=== PATIENT | male | born 1940 | race Caucasian/White ===

== ENCOUNTER 2018-05-14 07:12 | Inpatient (IN) | payer MEDICARE, OTHER | END 2018-05-16 14:30 | disposition home or self-care (01) | LOC: MED 3N 05-15 12:10 → ER 07:12 → PCU 3S 05-15 17:30 → ED HOLD 10:01 → PCU 3S 11:15 → ICU 2S 18:31 ==

== ENCOUNTER 2021-05-08 17:24 | Inpatient (IN) | payer OTHER, MEDICARE ==
[~2021-05-08] VITALS: Ht 170.2 cm; Wt 72.0 kg
[~2021-05-08 17:24] MED LIST: AMIO200T61 PO; ASPI-1265 PO; CLOP75TA34 PO; COR3.125T PO; FURO-150 PO; LISI10TA27 PO; SPIR25TA PO
[2021-05-08 21:39] LABS: BASOPHILS % (AUTO) 0.6 % (0-1); EOSINOPHILS # (AUTO) 0.1 X10'3 (0-0.9); EOSINOPHILS % (AUTO) 2.9 % (0-6); HEMATOCRIT 51.2 % (42.0-52.0); LYMPHOCYTES # (AUTO) 0.9 X10'3 (1.1-4.8); LYMPHOCYTES % (AUTO) 18.5 % (21-51); MEAN CORPUSCULAR HEMOGLOBIN 31.2 PG (27.0-31.0); MEAN CORPUSCULAR HGB CONC 33.3 g/dL (33.0-36.5); MEAN CORPUSCULAR VOLUME 93.7 FL (78-98); MEAN PLATELET VOLUME 8.2 FL (7.4-10.4); MONOCYTES # (AUTO) 0.5 X10'3 (0-0.9); MONOCYTES % (AUTO) 10.7 % (2-12); NEUTROPHILS # (AUTO) 3.1 X10'3 (1.8-7.7); NEUTROPHILS % (AUTO) 67.3 % (42-75); PLATELET COUNT 176 X10'3 (140-440); RED BLOOD COUNT 5.46 X10'6 (4.70-6.10); RED CELL DISTRIBUTION WIDTH 17.1 % (11.5-14.5); WHITE BLOOD COUNT 4.6 X10'3 (4.5-11.0)
[2021-05-08 21:46] LABS: APTT 32 SECONDS (22-32)
[2021-05-08 21:49] LABS: ALANINE AMINOTRANSFERASE 16 U/L (12-78); ALBUMIN 3.1 G/DL (3.4-5.0); ALBUMIN/GLOBULIN RATIO 0.7 (1.1-1.5); ALKALINE PHOSPHATASE 119 IU/L (46-116); ANION GAP 7 (8-16); ASPARTATE AMINO TRANSFERASE 32 U/L (10-37); BILIRUBIN,TOTAL 2.1 MG/DL (0.1-1.0); BLOOD UREA NITROGEN 20 MG/DL (7-18); BUN/CREATININE RATIO 15.6 (5.4-32.0); CHLORIDE 103 MMOL/L (99-107); CREATININE 1.28 MG/DL (0.60-1.10); GLUCOSE 85 MG/DL (70-104); POTASSIUM 3.5 MMOL/L (3.5-5.1); SODIUM 137 MMOL/L (135-145); TOTAL CARBON DIOXIDE 26.8 MMOL/L (24-32); TOTAL PROTEIN 7.7 G/DL (6.4-8.2); eGFR 54 ML/MIN
[2021-05-08] MEDS ORDERED: furosemide 10 MG/1 ML 10ml inj IV ONE (22:30)
[2021-05-08] MEDS ORDERED: mag hydrox/Alum hydrox/simeth 30ml oral suspension PO PRN (23:35)
[2021-05-08] MEDS ORDERED: magnesium 4gm in 100ml NS 100 ML IV PRN (23:35)
[2021-05-08] MEDS ORDERED: ondansetron/PF 4mg/2ml inj IV PRN (23:35)
[2021-05-08] MEDS ORDERED: acetaminophen 325mg tablet PO PRN (23:35)
[2021-05-08] MEDS ORDERED: magnesium hydroxide 30ml (MOM) UD suspension PO PRN (23:35)
[2021-05-08] MEDS ORDERED: magnesium Cl slow-release 64mg tablet PO PRN (23:35)
[2021-05-08] MEDS ORDERED: magnesium 2GM in 50ml NS 50 ML IV PRN (23:35)
[2021-05-08] MEDS ORDERED: potassium CL 10mEq/100ml bag 100 ML IV PRN (23:35)
[2021-05-08] MEDS ORDERED: potassium Cl 20 mEq SR tablet PO PRN (23:35)
[2021-05-08] MEDS ORDERED: AMIO100T PO (23:42)
[2021-05-08] MEDS ORDERED: CLOP75TA33 PO (23:42)
[2021-05-08] MEDS ORDERED: SPIR25TA5 PO (23:42)
--- NOTE | 2021-05-09 03:17 | NUR ---
Received report on patient from MERCEDEZ Frias. Pt coming up from ED. ALVAROS
[2021-05-09 03:32] LABS: POTASSIUM 3.5 MMOL/L (3.5-5.1)
--- NOTE | 2021-05-09 03:40 | NUR ---
Pt came up from ED in a wheelchair. VSS
[2021-05-09 04:24] VITALS: BP 147/86
[2021-05-09 07:36] LABS: BASOPHILS % (AUTO) 0.4 % (0-1); EOSINOPHILS # (AUTO) 0.1 X10'3 (0-0.9); EOSINOPHILS % (AUTO) 1.5 % (0-6); HEMATOCRIT 46.6 % (42.0-52.0); HEMOGLOBIN 15.8 g/dl (14.0-17.9); LYMPHOCYTES # (AUTO) 0.7 X10'3 (1.1-4.8); LYMPHOCYTES % (AUTO) 14.9 % (21-51); MEAN CORPUSCULAR HEMOGLOBIN 31.3 PG (27.0-31.0); MEAN CORPUSCULAR HGB CONC 33.9 g/dL (33.0-36.5); MEAN CORPUSCULAR VOLUME 92.4 FL (78-98); MEAN PLATELET VOLUME 7.9 FL (7.4-10.4); MONOCYTES # (AUTO) 0.4 X10'3 (0-0.9); MONOCYTES % (AUTO) 9.5 % (2-12); NEUTROPHILS # (AUTO) 3.5 X10'3 (1.8-7.7); NEUTROPHILS % (AUTO) 73.7 % (42-75); PLATELET COUNT 173 X10'3 (140-440); RED BLOOD COUNT 5.04 X10'6 (4.70-6.10); RED CELL DISTRIBUTION WIDTH 16.4 % (11.5-14.5); WHITE BLOOD COUNT 4.7 X10'3 (4.5-11.0)
[2021-05-09 07:49] LABS: ALANINE AMINOTRANSFERASE 14 U/L (12-78); ALBUMIN 2.7 G/DL (3.4-5.0); ALBUMIN/GLOBULIN RATIO 0.6 (1.1-1.5); ALKALINE PHOSPHATASE 95 IU/L (46-116); ANION GAP 6 (8-16); ASPARTATE AMINO TRANSFERASE 27 U/L (10-37); BILIRUBIN,TOTAL 2.2 MG/DL (0.1-1.0); BLOOD UREA NITROGEN 21 MG/DL (7-18); BUN/CREATININE RATIO 16.8 (5.4-32.0); CALCIUM 8.4 MG/DL (8.5-10.1); CHLORIDE 104 MMOL/L (99-107); CREATININE 1.25 MG/DL (0.60-1.10); GLUCOSE 98 MG/DL (70-104); POTASSIUM 3.4 MMOL/L (3.5-5.1); SODIUM 137 MMOL/L (135-145); TOTAL CARBON DIOXIDE 27.1 MMOL/L (24-32); TOTAL PROTEIN 6.9 G/DL (6.4-8.2); eGFR 55 ML/MIN
[2021-05-09] MEDS: K and/or MAG REPLACEMENT MC SCH ×2 (08:00→20:00)
[2021-05-09] MEDS ORDERED: spironolactone 25 MG tablet PO SCH ×2 (08:00→11:41)
[2021-05-09 08:31] VITALS: BP 151/88
[2021-05-09] MEDS: furosemide 10 MG/1 ML 10ml inj IV SCH ×2 (09:01→20:55)
[2021-05-09] MEDS: amiodarone 100mg tablet PO SCH (09:28)
[2021-05-09] MEDS: potassium Cl 20 mEq SR tablet PO PRN ×3 (09:28→17:50)
[2021-05-09] MEDS: carvedilol 6.25mg tablet PO SCH ×2 (09:29→20:53)
[2021-05-09] MEDS: clopidogrel 75mg tablet PO SCH (09:29)
[2021-05-09] MEDS: docusate sod 100mg capsule PO SCH ×2 (09:29→20:53)
--- NOTE | 2021-05-09 09:42 | NUR ---
PAGER ID: [phone] MESSAGE: Morro Berger [id number] Please clarify if you want both heparin and Plavix given. PT elevated plts only 176. Heparin held until clarification. Do you want k replaced to 4 for cardiac pt? Thank you Sue [id number]
--- NOTE | 2021-05-09 10:48 | NUR ---
Spoke with hospitalist. He would like both plavix and heparin given. Aware of coag studies.
[2021-05-09] MEDS: heparin, porcine 5000 units/ml vial SQ SCH ×2 (11:38→20:53)
--- NOTE | 2021-05-09 11:44 | NUR ---
A labeled 8am scheduled oral diuretic could not be provided by pharmacy in timely manner. Noted med not available.
[2021-05-09 12:09] VITALS: BP 125/77
[2021-05-09] MEDS ORDERED: ondansetron 4mg rapidly disintigrating tab PO PRN (12:50)
[2021-05-09 15:46] VITALS: BP 90/49
[2021-05-09 16:45] VITALS: BP 125/75
--- NOTE | 2021-05-09 17:46 | NUR ---
PAGER ID: [phone] MESSAGE: Morro Berger [id number] Pt. apical HR 52 at rest. Asymptotic. Irregular HR with s3 gallop at times. Do you want EKG? Sue [id number]
[2021-05-09 18:00] VITALS: BP 106/77
--- NOTE | 2021-05-09 18:18 | NUR ---
Gave report to Latosha NEWSOME.
--- NOTE | 2021-05-09 20:00 | NUR ---
PT AMBULATED WHOLE UNIT WITH SBA AND GAIT BELT.O2 SATS AT REST BETWEEN 93-100 ON RA BUT DESATS TO 82 WITH ACTIVITY.PT C/O SOB .
[2021-05-10] VITALS: BP 110/69
[2021-05-10 06:12] LABS: BASOPHILS % (AUTO) 0.8 % (0-1); EOSINOPHILS # (AUTO) 0.2 X10'3 (0-0.9); EOSINOPHILS % (AUTO) 3.7 % (0-6); HEMATOCRIT 50.1 % (42.0-52.0); HEMOGLOBIN 16.7 g/dl (14.0-17.9); LYMPHOCYTES # (AUTO) 0.9 X10'3 (1.1-4.8); LYMPHOCYTES % (AUTO) 19.7 % (21-51); MEAN CORPUSCULAR HEMOGLOBIN 31.4 PG (27.0-31.0); MEAN CORPUSCULAR HGB CONC 33.2 g/dL (33.0-36.5); MEAN CORPUSCULAR VOLUME 94.4 FL (78-98); MEAN PLATELET VOLUME 8.2 FL (7.4-10.4); MONOCYTES # (AUTO) 0.5 X10'3 (0-0.9); MONOCYTES % (AUTO) 9.6 % (2-12); NEUTROPHILS # (AUTO) 3.1 X10'3 (1.8-7.7); NEUTROPHILS % (AUTO) 66.2 % (42-75); PLATELET COUNT 178 X10'3 (140-440); RED BLOOD COUNT 5.31 X10'6 (4.70-6.10); RED CELL DISTRIBUTION WIDTH 16.8 % (11.5-14.5); WHITE BLOOD COUNT 4.7 X10'3 (4.5-11.0)
--- NOTE | 2021-05-10 06:41 | NUR ---
Report given to kassy NEWSOME
[2021-05-10 06:43] LABS: ALANINE AMINOTRANSFERASE 14 U/L (12-78); ALBUMIN 2.9 G/DL (3.4-5.0); ALBUMIN/GLOBULIN RATIO 0.6 (1.1-1.5); ALKALINE PHOSPHATASE 99 IU/L (46-116); ANION GAP 3 (8-16); ASPARTATE AMINO TRANSFERASE 29 U/L (10-37); BILIRUBIN,TOTAL 2.3 MG/DL (0.1-1.0); BLOOD UREA NITROGEN 23 MG/DL (7-18); BUN/CREATININE RATIO 15.3 (5.4-32.0); CALCIUM 8.7 MG/DL (8.5-10.1); CHLORIDE 101 MMOL/L (99-107); GLUCOSE 86 MG/DL (70-104); MAGNESIUM 1.9 MG/DL (1.5-2.4); POTASSIUM 4.3 MMOL/L (3.5-5.1); SODIUM 136 MMOL/L (135-145); TOTAL CARBON DIOXIDE 31.7 MMOL/L (24-32); TOTAL PROTEIN 7.5 G/DL (6.4-8.2); eGFR 45 ML/MIN
[2021-05-10] MEDS: heparin, porcine 5000 units/ml vial SQ SCH (07:05)
[2021-05-10] MEDS: amiodarone 100mg tablet PO SCH (07:05)
[2021-05-10] MEDS: docusate sod 100mg capsule PO SCH (07:05)
[2021-05-10] MEDS: K and/or MAG REPLACEMENT MC SCH (07:06)
[2021-05-10] MEDS: clopidogrel 75mg tablet PO SCH (07:07)
[2021-05-10] MEDS: carvedilol 6.25mg tablet PO SCH (07:08)
[2021-05-10 07:14] VITALS: BP 124/81
[2021-05-10 08:00] VITALS: BP 118/74
[2021-05-10 09:09] VITALS: BP 123/60
[2021-05-10] MEDS ORDERED: FURO40TA4 PO (10:04)
--- NOTE | 2021-05-10 10:17 | NUR ---
Spoke with hospitalist who is rounding on floor. ok to give lasix with 59 hr.
[2021-05-10] MEDS: furosemide 10 MG/1 ML 10ml inj IV SCH (10:21)
--- NOTE | 2021-05-10 10:40 | NUR ---
Called Hetal 2x. Left voicemail with contact info. Called daughter. Phone turned off. Message in belarusian.
--- NOTE | 2021-05-10 12:05 | NUR ---
DISCHARGE NOTE: Reviewed discharge medications and paperwork with pt. and pt. ex- Hetal. Extensive education provided on potassium rich heart-healthy diet, way to keep med compliance and organize medications, benefits and possible ASE of new med Lasix, and exercise. Discuss f/u. Good verbal feedback from both people. Pt. knows to p/u meds. Talked about not taking medication which the pt. stated he takes at home. IV DC'd, cannula intact and pressure bandage applied. Gathered belongings, denied anything stored in pharmacy or hospital safe. Escorted by staff into a w/c and out the doors to ex-'s car who will drive to pharmacy and home. [facility] Denies any dizziness, SOB, or CP on discharge. Knows to return to ER if he cannot manage CHF symptoms.
== END 2021-05-10 11:58 | disposition home or self-care (01) | DRG 280 ==
LOC: ER 17:25 → ED HOLD 23:37 → SUR 3N 05-09 03:30
PROVIDERS: ADMIT Internal Medicine; ATTEND Family Medicine
DX: I11.0 Hypertensive heart disease with heart failure (principal); I50.23 Acute on chronic systolic (congestive) heart failure; I21.A1 Myocardial infarction type 2; I25.5 Ischemic cardiomyopathy; Z20.822 Contact with and (suspected) exposure to COVID-19; I25.10 Atherosclerotic heart disease of native coronary artery without angina pectoris; I48.91 Unspecified atrial fibrillation; Z79.899 Other long term (current) drug therapy
CPT/HCPCS: 36415; 71045; 80053; 83605; 83735; 83880; 84132; 84145; 84443; 84484; 85025; 85610; 85730; 87040; 87081; 87635; 93005; 99285; G0378; J1644; J1940

== ENCOUNTER 2021-06-08 23:52 | Inpatient (IN) | payer OTHER, MEDICARE ==
[~2021-06-08] VITALS: Ht 167.6 cm; Wt 64.7 kg
[~2021-06-08 23:52] MED LIST changes: +AMIO100T PO; -AMIO200T61 PO; -ASPI-1265 PO; +CLOP75TA33 PO; -CLOP75TA34 PO; -COR3.125T PO; -FURO-150 PO; +FURO40TA4 PO; -LISI10TA27 PO; -SPIR25TA PO; +SPIR25TA5 PO
[2021-06-09 01:38] LABS: CLARITY,URINE CLEAR (Clear); COLOR,URINE YELLOW (Yellow); GLUCOSE, URINE NEGATIVE (Neg); KETONES,URINE NEGATIVE (Neg); LEUKOCYTE ESTERASE ,URINE NEGATIVE (Neg); NITRITES, URINE NEGATIVE (Neg); OCCULT BLOOD,URINE NEGATIVE (Neg); PROTEIN,URINE TRACE mg/dl (Neg)
[2021-06-09 01:52] LABS: BASOPHILS % (AUTO) 0.5 % (0-1); EOSINOPHILS # (AUTO) 0.3 X10'3 (0-0.9); EOSINOPHILS % (AUTO) 4.7 % (0-6); HEMOGLOBIN 16.4 g/dl (14.0-17.9); LYMPHOCYTES # (AUTO) 1.2 X10'3 (1.1-4.8); LYMPHOCYTES % (AUTO) 21.4 % (21-51); MEAN CORPUSCULAR HEMOGLOBIN 30.7 PG (27.0-31.0); MEAN CORPUSCULAR HGB CONC 32.9 g/dL (33.0-36.5); MEAN CORPUSCULAR VOLUME 93.4 FL (78-98); MEAN PLATELET VOLUME 7.8 FL (7.4-10.4); MONOCYTES # (AUTO) 0.4 X10'3 (0-0.9); MONOCYTES % (AUTO) 8.2 % (2-12); NEUTROPHILS # (AUTO) 3.5 X10'3 (1.8-7.7); NEUTROPHILS % (AUTO) 65.2 % (42-75); PLATELET COUNT 233 X10'3 (140-440); RED BLOOD COUNT 5.35 X10'6 (4.70-6.10); RED CELL DISTRIBUTION WIDTH 16.3 % (11.5-14.5); WHITE BLOOD COUNT 5.4 X10'3 (4.5-11.0)
[2021-06-09 01:52] LABS: UA COLLECTION TYPE CLN CATCH MIDSTREAM
[2021-06-09 01:56] LABS: RBC,URINE NONE SEEN /HPF (0-2); WBC,URINE 0-4 /HPF (0-4)
[2021-06-09 01:57] LABS: BACTERIA,URINE NONE SEEN /HPF (Neg); FINE GRANULAR CAST 0-3 /LPF (NEGATIVE); MUCUS STRANDS FEW /LPF (Neg); SQUAMOUS EPITHELIAL CELL,UR FEW /LPF (FEW)
[2021-06-09 02:36] LABS: ALANINE AMINOTRANSFERASE 27 U/L (12-78); ALBUMIN/GLOBULIN RATIO 0.6 (1.1-1.5); ALKALINE PHOSPHATASE 168 IU/L (46-116); ANION GAP 12 (8-16); ASPARTATE AMINO TRANSFERASE 29 U/L (10-37); BILIRUBIN,TOTAL 1.6 MG/DL (0.1-1.0); BLOOD UREA NITROGEN 19 MG/DL (7-18); CALCIUM 9.3 MG/DL (8.5-10.1); CHLORIDE 102 MMOL/L (99-107); CREATININE 1.12 MG/DL (0.60-1.10); GLUCOSE 85 MG/DL (70-104); POTASSIUM 4.7 MMOL/L (3.5-5.1); SODIUM 140 MMOL/L (135-145); TOTAL CARBON DIOXIDE 25.7 MMOL/L (24-32); TOTAL PROTEIN 7.9 G/DL (6.4-8.2); eGFR 63 ML/MIN
[2021-06-09 02:43] LABS: BILIRUBIN,DIRECT 0.7 MG/DL (0-0.3); LIPASE < 50 U/L (73-393)
[2021-06-09] MEDS ORDERED: aspirin 325mg tablet PO ONE (02:50)
[2021-06-09] MEDS ORDERED: ASPI-1265 PO (02:52)
[2021-06-09] MEDS ORDERED: iohexol 350MG/ML 100ml bottle IV ONE (03:01)
[2021-06-09] MEDS ORDERED: furosemide 10 MG/1 ML 10ml inj IV ONE (04:10)
[2021-06-09] MEDS ORDERED: heparin 10,000 units/1 ML INJ IV PRN (05:30)
[2021-06-09] MEDS ORDERED: heparin 10,000 units/1 ML INJ IV ONE ×2 (05:30)
[2021-06-09] MEDS ORDERED: mag hydrox/Alum hydrox/simeth 30ml oral suspension PO PRN (05:40)
[2021-06-09] MEDS ORDERED: magnesium hydroxide 30ml (MOM) UD suspension PO PRN (05:40)
[2021-06-09] MEDS ORDERED: magnesium Cl slow-release 64mg tablet PO PRN (05:40)
[2021-06-09] MEDS ORDERED: potassium Cl 20 mEq SR tablet PO PRN ×2 (05:40)
[2021-06-09] MEDS ORDERED: magnesium 4gm in 100ml NS 100 ML IV PRN (05:40)
[2021-06-09] MEDS ORDERED: ondansetron/PF 4mg/2ml inj IV PRN (05:40)
[2021-06-09] MEDS ORDERED: potassium CL 10mEq/100ml bag 100 ML IV PRN (05:40)
[2021-06-09] MEDS ORDERED: acetaminophen 325mg tablet PO PRN (05:40)
[2021-06-09] MEDS ORDERED: magnesium 2GM in 50ml NS 50 ML IV PRN (05:40)
[2021-06-09] MEDS: heparin 25,000 UNIT/250ml bag 250 ML IV SCH (05:48)
[2021-06-09 05:57] LABS: MAGNESIUM 2.2 MG/DL (1.5-2.4)
--- NOTE | 2021-06-09 06:45 | NUR ---
voided 775cc clear yellow urine via urinal.
[2021-06-09 07:00] VITALS: BP 117/67
--- NOTE | 2021-06-09 07:00 | NUR ---
pt states," im a little sob" 2l/min nc applied for comfort
--- NOTE | 2021-06-09 07:07 | NUR ---
pt states, " im feeling better with the oxygen on."
--- NOTE | 2021-06-09 07:30 | NUR ---
Patient in room LUIS 358. I have received report from Fabiola NEWSOME and had the opportunity to ask questions and assume patient care.
[2021-06-09] MEDS: K and/or MAG REPLACEMENT MC SCH ×2 (08:00→19:54)
[2021-06-09] MEDS: amiodarone 100mg tablet PO SCH (09:12)
[2021-06-09] MEDS: furosemide 40mg tablet PO SCH (09:14)
[2021-06-09] MEDS: spironolactone 25 MG tablet PO SCH (09:14)
[2021-06-09] MEDS: docusate sod 100mg capsule PO SCH ×2 (09:15→19:54)
[2021-06-09] MEDS ORDERED: CefTRIAXone/D5W-Rocephin 1gm 50 ML IV SCH (10:25)
[2021-06-09] MEDS ORDERED: methylPREDNISolone sod succ 125mg/2ml vial IV ONE (10:25)
[2021-06-09] MEDS: azithromycin 250mg tablet PO SCH (11:00)
[2021-06-09] MEDS ORDERED: ondansetron 4mg rapidly disintigrating tab PO PRN (11:55)
[2021-06-09 12:00] VITALS: BP 143/77
--- NOTE | 2021-06-09 12:00 | NUR ---
Student documentation: I have reviewed and agree with all interventions, assessments performed and documented by Charbel.
--- NOTE | 2021-06-09 12:01 | NUR ---
Problems reprioritized. Patient report given, questions answered & plan of care reviewed with Ruben NEWSOME.
[2021-06-09] MEDS: ipratropium/albuterol 3ml nebule NEB SCH ×4 (12:10→23:00)
--- NOTE | 2021-06-09 13:00 | NUR ---
Patient arrived to the unit alert and orient B/P 164/111 HR 86, Dr. Vasquez was notified as ordered hydralazine 20mg iv. During the assessment observed pitting edema in lower extremities and coccyx area red.
[2021-06-09 13:08] VITALS: BP 164/111
--- NOTE | 2021-06-09 13:11 | NUR ---
Problems reprioritized. Patient report given, questions answered & plan of care reviewed with FRANCE NEWSOME.
--- NOTE | 2021-06-09 13:19 | NUR ---
Page Accepted promotional table spacer Message: [id number] MickieSRINATH. PT JUST ARRIVED FROM MED SURG FLOOR BP IS 164/111. CAN I GET A PRN BP MED PLEASE ? FRANCE/LAURA [id number] Custom Responses: promotional table spacer Transaction number: [id number]
[2021-06-09] MEDS ORDERED: hydrALAZINE 20mg/ml inj. IV ONE (13:35)
[2021-06-09 15:00] VITALS: BP 123/57
[2021-06-09] MEDS: methylPREDNISolone sod succ 125mg/2ml vial IV SCH (17:30)
[2021-06-09 18:00] VITALS: BP 126/63
--- NOTE | 2021-06-09 20:01 | NUR ---
heparin aptt 65. continues to be in therapeutic range. Will continue to monitor.
[2021-06-10] MEDS: methylPREDNISolone sod succ 125mg/2ml vial IV SCH ×3 (00:13→15:50)
[2021-06-10] MEDS: heparin 25,000 UNIT/250ml bag 250 ML IV SCH (01:35)
[2021-06-10] MEDS: ipratropium/albuterol 3ml nebule NEB SCH ×6 (03:00→23:00)
[2021-06-10 04:00] VITALS: BP 124/80
[2021-06-10] MEDS: CefTRIAXone inj 1,000 MG in dextrose 5%-water 100 ML IV SCH (07:24)
[2021-06-10] MEDS: azithromycin 250mg tablet PO SCH (07:26)
[2021-06-10] MEDS: spironolactone 25 MG tablet PO SCH (07:26)
[2021-06-10] MEDS: amiodarone 100mg tablet PO SCH (07:26)
[2021-06-10] MEDS: furosemide 40mg tablet PO SCH (07:26)
[2021-06-10] MEDS: docusate sod 100mg capsule PO SCH ×2 (07:26→19:37)
[2021-06-10 07:38] LABS: BASOPHILS % (AUTO) 0.3 % (0-1); EOSINOPHILS % (AUTO) 0 % (0-6); HEMOGLOBIN 15.3 g/dl (14.0-17.9); LYMPHOCYTES # (AUTO) 0.4 X10'3 (1.1-4.8); LYMPHOCYTES % (AUTO) 4.5 % (21-51); MEAN CORPUSCULAR HEMOGLOBIN 30.6 PG (27.0-31.0); MEAN CORPUSCULAR HGB CONC 33.3 g/dL (33.0-36.5); MEAN CORPUSCULAR VOLUME 91.7 FL (78-98); MEAN PLATELET VOLUME 7.7 FL (7.4-10.4); MONOCYTES # (AUTO) 0.1 X10'3 (0-0.9); MONOCYTES % (AUTO) 1.5 % (2-12); NEUTROPHILS % (AUTO) 93.7 % (42-75); PLATELET COUNT 204 X10'3 (140-440); RED BLOOD COUNT 5.02 X10'6 (4.70-6.10); RED CELL DISTRIBUTION WIDTH 15.9 % (11.5-14.5); WHITE BLOOD COUNT 8.5 X10'3 (4.5-11.0)
[2021-06-10] MEDS: K and/or MAG REPLACEMENT MC SCH ×2 (08:00→19:31)
[2021-06-10 08:14] VITALS: BP 152/89
[2021-06-10 08:21] LABS: ALANINE AMINOTRANSFERASE 14 U/L (12-78); ALBUMIN 2.6 G/DL (3.4-5.0); ALBUMIN/GLOBULIN RATIO 0.6 (1.1-1.5); ALKALINE PHOSPHATASE 135 IU/L (46-116); ANION GAP 11 (8-16); ASPARTATE AMINO TRANSFERASE 19 U/L (10-37); BLOOD UREA NITROGEN 26 MG/DL (7-18); BUN/CREATININE RATIO 23.2 (5.4-32.0); CALCIUM 9.2 MG/DL (8.5-10.1); CHLORIDE 102 MMOL/L (99-107); CREATININE 1.12 MG/DL (0.60-1.10); GLUCOSE 135 MG/DL (70-104); MAGNESIUM 1.9 MG/DL (1.5-2.4); PHOSPHORUS 4.5 MG/DL (2.3-4.5); POTASSIUM 4.3 MMOL/L (3.5-5.1); SODIUM 140 MMOL/L (135-145); TOTAL CARBON DIOXIDE 27.1 MMOL/L (24-32); TOTAL PROTEIN 7.1 G/DL (6.4-8.2); eGFR 63 ML/MIN
[2021-06-10] MEDS ORDERED: PERFLUTREN PROTEIN-A MICROSPHR (Optison) 0.22 MG/ML 3ML VIAL IV ONE (09:40)
[2021-06-10 11:00] VITALS: BP 125/57
[2021-06-10] MEDS: enoxaparin 30mg/0.3ml syringe SUBCUT SCH ×2 (11:27→19:38)
[2021-06-10] MEDS: enoxaparin 40mg/0.4ml syringe SQ SCH ×2 (11:27→19:38)
[2021-06-10 15:00] VITALS: BP 113/57
[2021-06-10 18:00] VITALS: BP 111/64
[2021-06-11 02:00] VITALS: BP 123/64
[2021-06-11] MEDS: ipratropium/albuterol 3ml nebule NEB SCH ×6 (02:34→23:25)
[2021-06-11 06:00] VITALS: BP 119/75
--- NOTE | 2021-06-11 06:53 | NUR ---
Patient in room PCU 3025. I have received report from Andree and had the opportunity to ask questions and assume patient care.
[2021-06-11] MEDS: K and/or MAG REPLACEMENT MC SCH ×2 (08:00→19:25)
[2021-06-11 08:10] LABS: BASOPHILS % (AUTO) 0.4 % (0-1); EOSINOPHILS % (AUTO) 0 % (0-6); HEMATOCRIT 47.3 % (42.0-52.0); HEMOGLOBIN 15.4 g/dl (14.0-17.9); LYMPHOCYTES # (AUTO) 0.3 X10'3 (1.1-4.8); LYMPHOCYTES % (AUTO) 2.4 % (21-51); MEAN CORPUSCULAR HEMOGLOBIN 30.4 PG (27.0-31.0); MEAN CORPUSCULAR HGB CONC 32.6 g/dL (33.0-36.5); MEAN CORPUSCULAR VOLUME 93.3 FL (78-98); MEAN PLATELET VOLUME 7.8 FL (7.4-10.4); MONOCYTES # (AUTO) 0.3 X10'3 (0-0.9); MONOCYTES % (AUTO) 2.2 % (2-12); NEUTROPHILS # (AUTO) 11.8 X10'3 (1.8-7.7); PLATELET COUNT 212 X10'3 (140-440); RED BLOOD COUNT 5.07 X10'6 (4.70-6.10); RED CELL DISTRIBUTION WIDTH 15.9 % (11.5-14.5); WHITE BLOOD COUNT 12.4 X10'3 (4.5-11.0)
[2021-06-11] MEDS: CefTRIAXone inj 1,000 MG in dextrose 5%-water 100 ML IV SCH (08:17)
[2021-06-11] MEDS: methylPREDNISolone sod succ 125mg/2ml vial IV SCH ×3 (08:18→17:00)
[2021-06-11] MEDS: spironolactone 25 MG tablet PO SCH (08:19)
[2021-06-11] MEDS: enoxaparin 40mg/0.4ml syringe SQ SCH ×2 (08:20→20:07)
[2021-06-11] MEDS: furosemide 40mg tablet PO SCH (08:20)
[2021-06-11] MEDS: amiodarone 100mg tablet PO SCH (08:20)
[2021-06-11] MEDS: docusate sod 100mg capsule PO SCH ×2 (08:20→20:07)
[2021-06-11] MEDS: azithromycin 250mg tablet PO SCH (08:20)
[2021-06-11] MEDS: enoxaparin 30mg/0.3ml syringe SUBCUT SCH ×2 (08:21→20:08)
[2021-06-11 08:35] LABS: ALANINE AMINOTRANSFERASE 22 U/L (12-78); ALBUMIN 2.8 G/DL (3.4-5.0); ALBUMIN/GLOBULIN RATIO 0.6 (1.1-1.5); ALKALINE PHOSPHATASE 127 IU/L (46-116); ASPARTATE AMINO TRANSFERASE 20 U/L (10-37); BILIRUBIN,TOTAL 0.9 MG/DL (0.1-1.0); BLOOD UREA NITROGEN 29 MG/DL (7-18); CALCIUM 9.4 MG/DL (8.5-10.1); CREATININE 1.21 MG/DL (0.60-1.10); GLUCOSE 120 MG/DL (70-104); MAGNESIUM 2.1 MG/DL (1.5-2.4); PHOSPHORUS 4.4 MG/DL (2.3-4.5); TOTAL PROTEIN 7.3 G/DL (6.4-8.2); eGFR 58 ML/MIN
[2021-06-11 09:01] LABS: ANION GAP 10 (8-16); CHLORIDE 100 MMOL/L (99-107); POTASSIUM 4.5 MMOL/L (3.5-5.1); SODIUM 134 MMOL/L (135-145)
[2021-06-11 11:00] VITALS: BP 140/74
--- NOTE | 2021-06-11 12:34 | NUR ---
1100 svn held--pt. sleeping comfortably without sob on room air
[2021-06-11 15:00] VITALS: BP 134/75
[2021-06-11 18:00] VITALS: BP 160/107
--- NOTE | 2021-06-11 18:25 | NUR ---
Problems reprioritized. Patient report given, questions answered & plan of care reviewed with Andree.
[2021-06-11 22:00] VITALS: BP 140/76
[2021-06-12] MEDS: methylPREDNISolone sod succ 125mg/2ml vial IV SCH ×2 (00:49→08:54)
[2021-06-12 02:00] VITALS: BP 157/103
[2021-06-12] MEDS: ipratropium/albuterol 3ml nebule NEB SCH ×6 (02:34→23:00)
[2021-06-12 06:00] VITALS: BP 116/69
[2021-06-12 06:07] LABS: BASOPHILS % (AUTO) 0.1 % (0-1); EOSINOPHILS % (AUTO) 0 % (0-6); HEMATOCRIT 45.2 % (42.0-52.0); HEMOGLOBIN 14.8 g/dl (14.0-17.9); LYMPHOCYTES # (AUTO) 0.1 X10'3 (1.1-4.8); LYMPHOCYTES % (AUTO) 1.5 % (21-51); MEAN CORPUSCULAR HEMOGLOBIN 30.7 PG (27.0-31.0); MEAN CORPUSCULAR HGB CONC 32.7 g/dL (33.0-36.5); MEAN CORPUSCULAR VOLUME 94.1 FL (78-98); MONOCYTES # (AUTO) 0.2 X10'3 (0-0.9); MONOCYTES % (AUTO) 2.6 % (2-12); NEUTROPHILS # (AUTO) 8.7 X10'3 (1.8-7.7); NEUTROPHILS % (AUTO) 95.8 % (42-75); PLATELET COUNT 184 X10'3 (140-440); RED CELL DISTRIBUTION WIDTH 16.2 % (11.5-14.5); WHITE BLOOD COUNT 9.1 X10'3 (4.5-11.0)
[2021-06-12 06:27] LABS: ALANINE AMINOTRANSFERASE 24 U/L (12-78); ALBUMIN 2.7 G/DL (3.4-5.0); ALBUMIN/GLOBULIN RATIO 0.6 (1.1-1.5); ANION GAP 13 (8-16); ASPARTATE AMINO TRANSFERASE 23 U/L (10-37); BILIRUBIN,TOTAL 0.7 MG/DL (0.1-1.0); BLOOD UREA NITROGEN 35 MG/DL (7-18); BUN/CREATININE RATIO 31.5 (5.4-32.0); CHLORIDE 102 MMOL/L (99-107); CREATININE 1.11 MG/DL (0.60-1.10); GLUCOSE 131 MG/DL (70-104); MAGNESIUM 2.1 MG/DL (1.5-2.4); POTASSIUM 4.2 MMOL/L (3.5-5.1); SODIUM 142 MMOL/L (135-145); TOTAL CARBON DIOXIDE 27.1 MMOL/L (24-32); TOTAL PROTEIN 6.9 G/DL (6.4-8.2); eGFR 64 ML/MIN
[2021-06-12] MEDS: K and/or MAG REPLACEMENT MC SCH ×2 (08:00→19:57)
[2021-06-12] MEDS: enoxaparin 30mg/0.3ml syringe SUBCUT SCH (08:54)
[2021-06-12] MEDS: CefTRIAXone inj 1,000 MG in dextrose 5%-water 100 ML IV SCH (08:54)
[2021-06-12] MEDS: spironolactone 25 MG tablet PO SCH (08:55)
[2021-06-12] MEDS: enoxaparin 40mg/0.4ml syringe SQ SCH (08:55)
[2021-06-12] MEDS: docusate sod 100mg capsule PO SCH ×2 (08:56→20:00)
[2021-06-12] MEDS: amiodarone 100mg tablet PO SCH (08:56)
[2021-06-12] MEDS: clopidogrel 75mg tablet PO SCH (08:56)
[2021-06-12] MEDS: furosemide 40mg tablet PO SCH (08:56)
[2021-06-12] MEDS: aspirin 81mg tab.chew PO SCH (08:56)
[2021-06-12] MEDS: azithromycin 250mg tablet PO SCH (08:56)
[2021-06-12] MEDS: losartan 25mg tablet PO SCH (08:57)
[2021-06-12 11:00] VITALS: BP 148/73
[2021-06-12 15:00] VITALS: BP 138/80
--- NOTE | 2021-06-12 18:17 | NUR ---
Problems reprioritized. Patient report given, questions answered & plan of care reviewed with Lesa.
--- NOTE | 2021-06-12 18:25 | NUR ---
Per Dr. Nik Teresa to be tonight and tomorrow AM.
--- NOTE | 2021-06-12 19:43 | NUR ---
Problems reprioritized. Patient report given, questions answered & plan of care reviewed with Lesa.
[2021-06-13] VITALS (11 sets, daily range): BP systolic 143–157; BP diastolic 81–105
[2021-06-13] MEDS: ipratropium/albuterol 3ml nebule NEB SCH ×6 (02:50→23:00)
--- NOTE | 2021-06-13 06:25 | NUR ---
Problems reprioritized. Patient report given, questions answered & plan of care reviewed with MERCEDEZ Miranda.
[2021-06-13 06:34] LABS: BASOPHILS % (AUTO) 0 % (0-1); EOSINOPHILS % (AUTO) 0 % (0-6); HEMATOCRIT 45.2 % (42.0-52.0); HEMOGLOBIN 14.8 g/dl (14.0-17.9); LYMPHOCYTES # (AUTO) 0.3 X10'3 (1.1-4.8); LYMPHOCYTES % (AUTO) 3.9 % (21-51); MEAN CORPUSCULAR HEMOGLOBIN 30.6 PG (27.0-31.0); MEAN CORPUSCULAR HGB CONC 32.7 g/dL (33.0-36.5); MEAN CORPUSCULAR VOLUME 93.8 FL (78-98); MEAN PLATELET VOLUME 7.8 FL (7.4-10.4); MONOCYTES # (AUTO) 0.6 X10'3 (0-0.9); MONOCYTES % (AUTO) 6.9 % (2-12); NEUTROPHILS # (AUTO) 7.2 X10'3 (1.8-7.7); NEUTROPHILS % (AUTO) 89.2 % (42-75); PLATELET COUNT 171 X10'3 (140-440); RED BLOOD COUNT 4.82 X10'6 (4.70-6.10); RED CELL DISTRIBUTION WIDTH 16.4 % (11.5-14.5); WHITE BLOOD COUNT 8.1 X10'3 (4.5-11.0)
[2021-06-13 07:11] LABS: ALANINE AMINOTRANSFERASE 32 U/L (12-78); ALBUMIN 2.5 G/DL (3.4-5.0); ALBUMIN/GLOBULIN RATIO 0.6 (1.1-1.5); ALKALINE PHOSPHATASE 103 IU/L (46-116); ANION GAP 7 (8-16); ASPARTATE AMINO TRANSFERASE 28 U/L (10-37); BILIRUBIN,TOTAL 0.8 MG/DL (0.1-1.0); BLOOD UREA NITROGEN 36 MG/DL (7-18); CALCIUM 9.3 MG/DL (8.5-10.1); CHLORIDE 105 MMOL/L (99-107); CREATININE 1.09 MG/DL (0.60-1.10); GLUCOSE 111 MG/DL (70-104); MAGNESIUM 2.4 MG/DL (1.5-2.4); PHOSPHORUS 3.5 MG/DL (2.3-4.5); POTASSIUM 5.1 MMOL/L (3.5-5.1); SODIUM 143 MMOL/L (135-145); TOTAL CARBON DIOXIDE 30.9 MMOL/L (24-32); TOTAL PROTEIN 6.7 G/DL (6.4-8.2); eGFR 65 ML/MIN
[2021-06-13] MEDS: docusate sod 100mg capsule PO SCH ×2 (08:00→19:44)
[2021-06-13] MEDS: spironolactone 25 MG tablet PO SCH (08:00)
[2021-06-13] MEDS: K and/or MAG REPLACEMENT MC SCH ×2 (08:00→19:26)
[2021-06-13] MEDS: amiodarone 100mg tablet PO SCH (08:00)
[2021-06-13] MEDS: predniSONE 20 mg tablet PO SCH (08:00)
[2021-06-13] MEDS: furosemide 40mg tablet PO SCH (08:00)
[2021-06-13] MEDS: aspirin 81mg tab.chew PO SCH (08:00)
[2021-06-13] MEDS: clopidogrel 75mg tablet PO SCH (08:00)
[2021-06-13] MEDS ORDERED: ceFAZolin 2gm in dextrose, iso 50 ML IV ONE (10:42)
[2021-06-13] MEDS ORDERED: fentaNYL/PF 50MCG/1 ML 2ML syringe ONE (10:42)
[2021-06-13] MEDS ORDERED: midazolam 1 mg/ML 2ml injection ONE (10:42)
[2021-06-13] MEDS ORDERED: iohexol 350 MG/ML 50ML vial IV ONE (10:43)
[2021-06-13] MEDS ORDERED: vancomycin 1,000mg inj ONE (10:43)
[2021-06-13] MEDS ORDERED: LIDOcaine 1% w/EPI 1:100,000 30ml vial (MDV) ONE (10:43)
[2021-06-13] MEDS ORDERED: HYDROcodone/acetaminophen 5mg/325mg tablet PO PRN ×2 (14:35→14:40)
[2021-06-13] MEDS ORDERED: HYDROcodone/acetaminophen 10/325mg tab PO PRN ×2 (14:35→14:40)
[2021-06-13] MEDS ORDERED: VANCOMYCIN 1GM/200ML IVPB 200 ML IV ONE ×2 (14:35→14:40)
--- NOTE | 2021-06-13 14:49 | NUR ---
Initial: Pt admit dx pulmonary embolism per EMR. Currently on heart healthy diet w/ 100% PO intake x last 12 meals and meeting estimated nutrient needs. LBM 06/12, receiving routine colace. No nutrition intervention implemented at this time. Will continue to monitor for nutrient needs this admit. Recommendations: 1. Continue regular diet 2. Routine bowel care 3. Weekly scaled wts Addendum: 06/13/21 at [address] Amended: Links added. Addendum: 06/13/21 at [address] [facility]LE[facility] has reviewed and approves of above note.
[2021-06-13] MEDS: hydrALAZINE 20mg/ml inj. IV PRN (15:41)
[2021-06-13] MEDS: carvedilol 6.25mg tablet PO SCH (19:44)
[2021-06-13] MEDS: enoxaparin 40mg/0.4ml syringe SQ SCH (20:00)
[2021-06-13] MEDS: enoxaparin 30mg/0.3ml syringe SUBCUT SCH (20:00)
--- NOTE | 2021-06-13 20:00 | NUR ---
Lucerox held per Dr. Lassiter's request.
--- NOTE | 2021-06-13 22:55 | NUR ---
Dr. Lassiter paged about hematoma at the surgical site. Dr. Lassiter paged back yelling at me on the phone. He advices to put pressure on the site, to place a sand bag for 2 hours then to reassess.
--- NOTE | 2021-06-13 23:10 | NUR ---
Pressure placed over the surgical site. Now sand bag in palce. Will continue monitor patient.
[2021-06-14] VITALS (8 sets, daily range): BP systolic 102–157; BP diastolic 60–90
[2021-06-14] MEDS: hydrALAZINE 20mg/ml inj. IV PRN
--- NOTE | 2021-06-14 02:01 | NUR ---
Call placed to Dr. Lassiter's office to report hematoma to left shoulder increase in size but decreases in height. appears less bulging. underliner Leroy made aware. All safety in place. Will continue to monitor
[2021-06-14] MEDS: ipratropium/albuterol 3ml nebule NEB SCH ×6 (03:05→23:00)
[2021-06-14] MEDS ORDERED: morphine 2 MG/ML inj. syringe IV PRN (03:10)
--- NOTE | 2021-06-14 03:10 | NUR ---
Dr. Zaragoza call the unit back to advises to put pressure for [address] more pressure over Sx site with a sand bag.
[2021-06-14] MEDS ORDERED: cephalexin 500mg capsule PO SCH (03:25)
--- NOTE | 2021-06-14 03:48 | NUR ---
2 sand bags applied over surgical site
--- NOTE | 2021-06-14 03:48 | NUR ---
Patient is currently on Rocephin. Call placed to Dr. Lassiter to verify new stat keflex order. Awaiting for call back
--- NOTE | 2021-06-14 04:03 | NUR ---
Per Dr. Lassiter dc keflex order since patient is on Rocephin IV.
[2021-06-14] MEDS ORDERED: CEPH250T PO (04:10)
--- NOTE | 2021-06-14 05:14 | NUR ---
Patient refuses to leave sand bags on. He takes them off each time I step out of the room. Patient educated about the importance of the interventions but does not agree or verbalize understanding. Addendum: 06/14/21 at 0518 by Porsha Merino RN Will continue education
--- NOTE | 2021-06-14 05:46 | NUR ---
Patient reoriented and educated about hematoma and the importance of leaving the sand bag in place. patient take sand bags off each time I step out of the room. Will continue education
--- NOTE | 2021-06-14 05:55 | NUR ---
Patient states " I refuse to put all this weight on my chest. It's my right to refuse it. I don't want or need any of this my breathing is fine. When the doctor comes at 6 AM, I will talk to him my self." Patient reeducated about the complications. He verbalizes understanding. oil field tester informed about patient decision to refuse care. All safety measures maintained. Will continue to monitor patient
--- NOTE | 2021-06-14 06:09 | NUR ---
Problems reprioritized. Patient report given, questions answered & plan of care reviewed with MERCEDEZ Jackman.
--- NOTE | 2021-06-14 06:30 | NUR ---
Patient in room PCU 3025. I have received report from Lesa NEWSOME and had the opportunity to ask questions and assume patient care.
--- NOTE | 2021-06-14 06:30 | NUR ---
Patient in room PCU 3025. I have received report from MERCEDEZ Story and had the opportunity to ask questions and assume patient care.
[2021-06-14] MEDS: enoxaparin 40mg/0.4ml syringe SQ SCH (06:51)
[2021-06-14] MEDS: enoxaparin 30mg/0.3ml syringe SUBCUT SCH (06:52)
[2021-06-14 07:34] LABS: BASOPHILS % (AUTO) 0.2 % (0-1); EOSINOPHILS % (AUTO) 0.2 % (0-6); HEMATOCRIT 47.4 % (42.0-52.0); HEMOGLOBIN 15.5 g/dl (14.0-17.9); LYMPHOCYTES # (AUTO) 0.8 X10'3 (1.1-4.8); LYMPHOCYTES % (AUTO) 9.4 % (21-51); MEAN CORPUSCULAR HEMOGLOBIN 30.7 PG (27.0-31.0); MEAN CORPUSCULAR HGB CONC 32.7 g/dL (33.0-36.5); MEAN CORPUSCULAR VOLUME 93.9 FL (78-98); MEAN PLATELET VOLUME 7.9 FL (7.4-10.4); MONOCYTES # (AUTO) 0.8 X10'3 (0-0.9); MONOCYTES % (AUTO) 9.4 % (2-12); NEUTROPHILS # (AUTO) 6.7 X10'3 (1.8-7.7); NEUTROPHILS % (AUTO) 80.8 % (42-75); PLATELET COUNT 194 X10'3 (140-440); RED BLOOD COUNT 5.04 X10'6 (4.70-6.10); RED CELL DISTRIBUTION WIDTH 16.4 % (11.5-14.5); WHITE BLOOD COUNT 8.3 X10'3 (4.5-11.0)
[2021-06-14] MEDS ORDERED: mupirocin 2% ointment 22GM NS ONE (08:00)
[2021-06-14] MEDS: K and/or MAG REPLACEMENT MC SCH ×2 (08:00→19:28)
[2021-06-14] MEDS: CefTRIAXone inj 1,000 MG in dextrose 5%-water 100 ML IV SCH ×2 (08:00→08:41)
[2021-06-14 08:05] LABS: ALANINE AMINOTRANSFERASE 60 U/L (12-78); ALBUMIN/GLOBULIN RATIO 0.7 (1.1-1.5); ALKALINE PHOSPHATASE 124 IU/L (46-116); ANION GAP 14 (8-16); ASPARTATE AMINO TRANSFERASE 54 U/L (10-37); BILIRUBIN,TOTAL 2.1 MG/DL (0.1-1.0); BLOOD UREA NITROGEN 34 MG/DL (7-18); BUN/CREATININE RATIO 31.2 (5.4-32.0); CALCIUM 8.9 MG/DL (8.5-10.1); CHLORIDE 104 MMOL/L (99-107); CREATININE 1.09 MG/DL (0.60-1.10); GLUCOSE 89 MG/DL (70-104); MAGNESIUM 2.2 MG/DL (1.5-2.4); PHOSPHORUS 3.6 MG/DL (2.3-4.5); POTASSIUM 4.9 MMOL/L (3.5-5.1); SODIUM 142 MMOL/L (135-145); TOTAL CARBON DIOXIDE 24.1 MMOL/L (24-32); TOTAL PROTEIN 7.5 G/DL (6.4-8.2); eGFR 65 ML/MIN
[2021-06-14] MEDS: amiodarone 100mg tablet PO SCH (08:39)
[2021-06-14] MEDS: furosemide 40mg tablet PO SCH (08:39)
[2021-06-14] MEDS: docusate sod 100mg capsule PO SCH ×2 (08:39→20:00)
[2021-06-14] MEDS: carvedilol 6.25mg tablet PO SCH ×2 (08:39→20:53)
[2021-06-14] MEDS: aspirin 81mg tab.chew PO SCH (08:39)
[2021-06-14] MEDS: losartan 25mg tablet PO SCH (08:40)
[2021-06-14] MEDS: predniSONE 20 mg tablet PO SCH (08:41)
[2021-06-14] MEDS: spironolactone 25 MG tablet PO SCH (08:43)
[2021-06-14] MEDS ORDERED: MESSAGE TO PHARMACY IJ ONE (11:05)
--- NOTE | 2021-06-14 18:08 | NUR ---
Orientee documentation: I have reviewed and agree with all interventions, assessments performed and documented by Selma RN.
--- NOTE | 2021-06-14 18:09 | NUR ---
Orientee Medication Administration: For this medication-pass time frame, all medication were reviewed, dispensed, administered and documented per hospital policy by Selma NEWSOME.
--- NOTE | 2021-06-14 18:15 | NUR ---
Problems reprioritized. Patient report given, questions answered & plan of care reviewed with Lesa NEWSOME.
[2021-06-14] MEDS ORDERED: CefTRIAXone/D5W-Rocephin 1gm 100 ML IV SCH (20:21)
[2021-06-15 02:00] VITALS: BP 115/61
[2021-06-15] MEDS: ipratropium/albuterol 3ml nebule NEB SCH ×6 (03:00→23:00)
[2021-06-15 06:00] VITALS: BP 142/83
--- NOTE | 2021-06-15 06:30 | NUR ---
Problems reprioritized. Patient report given, questions answered & plan of care reviewed with MERCEDEZ Xiao.
[2021-06-15] MEDS: K and/or MAG REPLACEMENT MC SCH ×2 (08:00→20:00)
[2021-06-15] MEDS: predniSONE 20 mg tablet PO SCH (08:06)
[2021-06-15] MEDS: carvedilol 6.25mg tablet PO SCH ×2 (08:08→19:36)
[2021-06-15] MEDS: furosemide 40mg tablet PO SCH (08:08)
[2021-06-15] MEDS: spironolactone 25 MG tablet PO SCH (08:08)
[2021-06-15] MEDS: amiodarone 100mg tablet PO SCH (08:09)
[2021-06-15] MEDS: docusate sod 100mg capsule PO SCH ×2 (08:09→19:36)
[2021-06-15] MEDS: losartan 25mg tablet PO SCH (08:10)
[2021-06-15] MEDS: CefTRIAXone/D5W-Rocephin 1gm 50 ML IV SCH (08:11)
[2021-06-15 11:00] VITALS: BP 117/73
[2021-06-15 18:00] VITALS: BP 130/88
--- NOTE | 2021-06-15 18:24 | NUR ---
Patient in room PCU 3025. I have received report from MERCEDEZ Miranda and had the opportunity to ask questions and assume patient care.
--- NOTE | 2021-06-15 18:24 | NUR ---
Patient in room PCU 3025. I have received report from MERCEDEZ Miranda and had the opportunity to ask questions and assume patient care.
[2021-06-15 23:19] VITALS: BP 109/58
[2021-06-16 02:00] VITALS: BP 116/69
[2021-06-16] MEDS: ipratropium/albuterol 3ml nebule NEB SCH ×6 (03:00→23:36)
[2021-06-16 06:00] VITALS: BP 126/75
--- NOTE | 2021-06-16 06:29 | NUR ---
Problems reprioritized. Patient report given, questions answered & plan of care reviewed with MERCEDEZ Miranda.
--- NOTE | 2021-06-16 06:29 | NUR ---
I have received report from MERCEDEZ Miranda and had the opportunity to ask questions and assume patient care.
[2021-06-16 07:02] LABS: ALANINE AMINOTRANSFERASE 39 U/L (12-78); ALBUMIN 2.3 G/DL (3.4-5.0); ALBUMIN/GLOBULIN RATIO 0.7 (1.1-1.5); ALKALINE PHOSPHATASE 87 IU/L (46-116); ANION GAP 4 (8-16); ASPARTATE AMINO TRANSFERASE 30 U/L (10-37); BILIRUBIN,TOTAL 0.8 MG/DL (0.1-1.0); BLOOD UREA NITROGEN 36 MG/DL (7-18); CALCIUM 8.5 MG/DL (8.5-10.1); CHLORIDE 106 MMOL/L (99-107); CREATININE 1.06 MG/DL (0.60-1.10); GLUCOSE 94 MG/DL (70-104); POTASSIUM 4.3 MMOL/L (3.5-5.1); SODIUM 140 MMOL/L (135-145); TOTAL CARBON DIOXIDE 29.8 MMOL/L (24-32); TOTAL PROTEIN 5.5 G/DL (6.4-8.2); eGFR 67 ML/MIN
[2021-06-16] MEDS: K and/or MAG REPLACEMENT MC SCH ×2 (08:00→19:57)
[2021-06-16] MEDS: CefTRIAXone/D5W-Rocephin 1gm 50 ML IV SCH (08:10)
[2021-06-16] MEDS: amiodarone 100mg tablet PO SCH (08:12)
[2021-06-16] MEDS: spironolactone 25 MG tablet PO SCH (08:12)
[2021-06-16] MEDS: docusate sod 100mg capsule PO SCH ×2 (08:12→20:20)
[2021-06-16] MEDS: losartan 25mg tablet PO SCH (08:13)
[2021-06-16] MEDS: furosemide 40mg tablet PO SCH (08:13)
[2021-06-16] MEDS: carvedilol 6.25mg tablet PO SCH ×2 (08:13→20:20)
[2021-06-16] MEDS: predniSONE 20 mg tablet PO SCH (08:13)
[2021-06-16 11:00] VITALS: BP 108/66
[2021-06-16] MEDS ORDERED: metoprolol tartrate 1mg/ml inj IV PRN ×2 (19:15)
[2021-06-16] MEDS ORDERED: aminophylline 250mg/10ml inj. IV PRN ×2 (19:15)
[2021-06-16] MEDS ORDERED: regadenoson 0.4mg/5ml syringe IV PRN ×2 (19:15)
[2021-06-16] MEDS ORDERED: nitroGLYCERIN 0.4mg SUBLingual tab SL PRN ×2 (19:15)
[2021-06-17] VITALS (13 sets, daily range): BP systolic 112–145; BP diastolic 52–95
[2021-06-17] MEDS: ipratropium/albuterol 3ml nebule NEB SCH ×6 (02:23→23:00)
[2021-06-17] MEDS ORDERED: cefazolin/dext.iso 2gm/50ml 50 ML IV ONE (05:00)
[2021-06-17] MEDS ORDERED: mupirocin 2% nasal ointment 1gm UD NS ONE (05:30)
[2021-06-17] MEDS ORDERED: gabapentin 400mg capsule PO ONE (05:30)
[2021-06-17] MEDS: losartan 25mg tablet PO SCH (08:00)
[2021-06-17] MEDS: spironolactone 25 MG tablet PO SCH (08:00)
[2021-06-17] MEDS: K and/or MAG REPLACEMENT MC SCH ×2 (08:00→20:00)
[2021-06-17] MEDS: amiodarone 100mg tablet PO SCH (08:00)
[2021-06-17] MEDS: carvedilol 6.25mg tablet PO SCH ×2 (08:00→20:00)
[2021-06-17] MEDS: CefTRIAXone/D5W-Rocephin 1gm 50 ML IV SCH (08:00)
[2021-06-17] MEDS: docusate sod 100mg capsule PO SCH ×2 (08:00→20:00)
[2021-06-17] MEDS: furosemide 40mg tablet PO SCH (08:00)
[2021-06-17] MEDS ORDERED: aminophylline 500mg/20ml vial ONE (09:26)
[2021-06-17] MEDS ORDERED: aminophylline 500mg/20ml vial IV PRN (09:26)
--- NOTE | 2021-06-17 10:47 | NUR ---
pt completed stress test, report to Marcelo RN, pt taken to [facility] room 8892I
[2021-06-18] VITALS (18 sets, daily range): BP systolic 82–190; BP diastolic 42–93
[2021-06-18] MEDS: ipratropium/albuterol 3ml nebule NEB SCH ×4 (03:00→15:00)
--- NOTE | 2021-06-18 06:30 | NUR ---
Patient in room PCU 3026. I have received report from Fco NEWSOME and had the opportunity to ask questions and assume patient care.
--- NOTE | 2021-06-18 07:41 | NUR ---
Daily meds left unadministered on JUN from previous shift. To get to my meds for the day, I non-admin'd them as given in the ER. The daily meds in question from previous shift are: Rocephin, aldactone, amiodarone, and lasix.
[2021-06-18] MEDS: losartan 25mg tablet PO SCH (08:00)
[2021-06-18] MEDS: docusate sod 100mg capsule PO SCH ×2 (08:00→20:00)
[2021-06-18] MEDS: furosemide 40mg tablet PO SCH (08:00)
[2021-06-18 08:56] LABS: BASOPHILS % (AUTO) 0.2 % (0-1); EOSINOPHILS # (AUTO) 0.2 X10'3 (0-0.9); EOSINOPHILS % (AUTO) 3.4 % (0-6); HEMATOCRIT 42.5 % (42.0-52.0); HEMOGLOBIN 13.9 g/dl (14.0-17.9); LYMPHOCYTES # (AUTO) 0.9 X10'3 (1.1-4.8); LYMPHOCYTES % (AUTO) 14.6 % (21-51); MEAN CORPUSCULAR HEMOGLOBIN 30.2 PG (27.0-31.0); MEAN CORPUSCULAR HGB CONC 32.6 g/dL (33.0-36.5); MEAN CORPUSCULAR VOLUME 92.6 FL (78-98); MEAN PLATELET VOLUME 7.9 FL (7.4-10.4); MONOCYTES # (AUTO) 0.6 X10'3 (0-0.9); MONOCYTES % (AUTO) 10.1 % (2-12); NEUTROPHILS # (AUTO) 4.2 X10'3 (1.8-7.7); NEUTROPHILS % (AUTO) 71.7 % (42-75); PLATELET COUNT 160 X10'3 (140-440); RED BLOOD COUNT 4.59 X10'6 (4.70-6.10); RED CELL DISTRIBUTION WIDTH 16.2 % (11.5-14.5); WHITE BLOOD COUNT 5.9 X10'3 (4.5-11.0)
[2021-06-18] MEDS: carvedilol 6.25mg tablet PO SCH ×2 (09:00→21:13)
[2021-06-18] MEDS: amiodarone 100mg tablet PO SCH (09:01)
--- NOTE | 2021-06-18 09:25 | NUR ---
Reassessment: Pt continues eating well, documented with mostly 100% PO intake of meals meeting estimated nutrient needs. [facility] 06/16, receiving routine bowel care. No nutrition intervention implemented at this time. Will continue to follow. Recommendations: 1. Continue heart healthy diet 2. Routine bowel care 3. Weekly scaled wts Addendum: 06/18/21 at [address] De La Garza RD Amended: Links added.
[2021-06-18] MEDS: K and/or MAG REPLACEMENT MC SCH ×2 (10:15→20:00)
[2021-06-18] MEDS: spironolactone 25 MG tablet PO SCH (10:22)
[2021-06-18 10:23] LABS: ALANINE AMINOTRANSFERASE 55 U/L (12-78); ALBUMIN 2.5 G/DL (3.4-5.0); ALBUMIN/GLOBULIN RATIO 0.8 (1.1-1.5); ALKALINE PHOSPHATASE 112 IU/L (46-116); ANION GAP 9 (8-16); ASPARTATE AMINO TRANSFERASE 37 U/L (10-37); BILIRUBIN,TOTAL 1.4 MG/DL (0.1-1.0); BLOOD UREA NITROGEN 31 MG/DL (7-18); BUN/CREATININE RATIO 28.4 (5.4-32.0); CALCIUM 8.5 MG/DL (8.5-10.1); CHLORIDE 104 MMOL/L (99-107); CREATININE 1.09 MG/DL (0.60-1.10); GLUCOSE 70 MG/DL (70-104); POTASSIUM 4.3 MMOL/L (3.5-5.1); SODIUM 138 MMOL/L (135-145); TOTAL CARBON DIOXIDE 25.4 MMOL/L (24-32); TOTAL PROTEIN 5.8 G/DL (6.4-8.2); eGFR 65 ML/MIN
[2021-06-18] MEDS: CefTRIAXone/D5W-Rocephin 1gm 50 ML IV SCH (11:19)
[2021-06-18] MEDS ORDERED: gabapentin 400mg capsule PO ONE (13:05)
[2021-06-18] MEDS ORDERED: MIDAZolam 1mg/ml 10ml vial ONE (13:54)
[2021-06-18] MEDS ORDERED: fentaNYL /PF 50mcg/ml 5ml ampule ONE (13:54)
[2021-06-18] MEDS ORDERED: rocuronium 10mg/ml inj IV ONE ×2 (13:55→16:47)
[2021-06-18] MEDS ORDERED: etomidate 2mg/ml inj. ONE (13:55)
[2021-06-18] MEDS ORDERED: labetalol 20mg/4ml (5mg/ml) syringe IV PRN (14:45)
[2021-06-18] MEDS ORDERED: ondansetron/PF 4mg/2ml inj IV PRN ×3 (14:45→17:30)
[2021-06-18] MEDS ORDERED: ringers solution, lacted 1,000 ML IV SCH ×2 (14:45→17:30)
[2021-06-18] MEDS ORDERED: enalaprilat dihydrate 2.5mg/2ml vial IV PRN (14:45)
[2021-06-18] MEDS ORDERED: fentaNYL/PF 50MCG/1 ML 2ML syringe IV PRN ×2 (14:45)
[2021-06-18] MEDS ORDERED: morphine 2 MG/ML inj. syringe IV PRN (14:45)
[2021-06-18] MEDS ORDERED: morphine 4 MG/ML inj SYRINge IV PRN (14:45)
[2021-06-18] MEDS ORDERED: albumin (Human) 5% 250ml 250 ML IV ONE (14:56)
[2021-06-18] MEDS ORDERED: BUPIVAcaine 0.5% inj/PF 30 ml vial IJ ONE (15:00)
[2021-06-18] MEDS ORDERED: BUPIVAcaine 0.5% inj/PF 30 ML ONE (15:00)
[2021-06-18] MEDS ORDERED: ondansetron/PF 4mg/2ml inj ONE (15:34)
--- NOTE | 2021-06-18 16:56 | NUR ---
Patient currently in OR. Patient's RN from PCU brought belongings to ICU and gave me report on the patient.
[2021-06-18] MEDS ORDERED: albuterol 2.5 MG/3 ML nebule NEB PRN (17:15)
[2021-06-18] MEDS ORDERED: metoclopramide 5 mg/ml inj IV PRN (17:15)
[2021-06-18] MEDS ORDERED: FENTANYL-0.9 % NACL/PF 100 ML IV PRN (17:25)
[2021-06-18] MEDS ORDERED: midazolam 100mg in NS 100ml 100 ML IV PRN (17:25)
--- NOTE | 2021-06-18 17:27 | NUR ---
Received from OR via ICU BED, accompanied by Anesthesiologist MICHEAL and report given by Anesthesiolgist. PATIENT WITH 18G PIV IN LEFT AND RIGHT UE. PATIENT WITH CHEST TUBE ON LEFT CHEST WALL WITH BLOODY DRAINAGE IN TUBING. PATIENT WWITH MACK CATHETER YELLOW URINE IN ATRIUM. RADHA COMING FROM LEFT CHEST WALL BY CHEST TUBE WELL. 3 LUMEN CENTRAL LINE TO RIGHT NECK. 10.5 TUBE AND 24 AT THE TEETH. RT PRESENT TO ASSESS AND SECURE AIRWAY. RIGHT RADIAL ART LINE IN PLACE. Addendum: 06/18/21 at 1741 by Florentin Han RN RN Amended: Links added.
[2021-06-18] MEDS ORDERED: MIDAZolam inj 50 MG in normal saline 50ml IV soln 40 ML IV SCH (17:30)
[2021-06-18] MEDS ORDERED: FENTANYL-0.9 % NACL/PF 100 ML IV SCH (17:30)
[2021-06-18 17:44] LABS: ABG BASE EXCESS -0.8 mmol/L (-2.0-2.0); ABG HCO3 22.3 mmol/L (22.0-26.0); ABG OXYGEN SATURATION 99.7 % (94-97); ABG PCO2 (T) 31.1 mmHg (35.0-48.0); ABG PO2 (T) 404.4 mmHg (75.0-100.0); FCOHb 0.5 % (0.0-3.9); FMetHb 0.4 % (0.0-1.5); FO2Hb 98.8 % (94-97); PATIENT TEMPERATURE 35.8; PEEP 5 cm H2O; RESPIRATORY RATE 10 b/min; TIDAL VOLUME 650 mL
--- NOTE | 2021-06-18 17:44 | NUR ---
ADDENDUM. PROVENA VAC TO LEFT CHEST WALL. MAINTAINING SUCTION Addendum: 06/18/21 at 1744 by Florentin Han RN, RN Amended: Links added.
--- NOTE | 2021-06-18 18:17 | NUR ---
PATIENT HAS MET ALL CRITERIA FOR TRANSFER TO THE ICU FLOOR. VSS. DRESSINGS INTACT. BED LOW, CALL LIGHT PRESENT AND 2 RAILS UP. RN PRESENT TO ACCEPT CARE OF PATIENT AND REPORT HAS BEEN CALLED. ALL QUESTIONS ANSWERED TO ACCEPTING RN. SET ALL LINES AND CARE TRANSFERED TO ICU NURSE. VSS. 130'S SYSTOLIC. ADEQUATE DRAINAGE FROM CHEST TUBE. ROUGHLY 75 CC. URINE IN ATRIUM IS CLEAR YELLOW. HEMOVAC HOLDING SUCTION AND MINIMAL DRAINAGE IN BULB. PATIENT TRANSFERED ON TELE WITH RN AND 2ND RN TO ASSIST. ALL BELONINGS ARE FROM THE PCU. NONE IN RR. Addendum: 06/18/21 at 1827 by Florentin Campoverde - MERCEDEZ RN Amended: Links added.
--- NOTE | 2021-06-18 18:50 | NUR ---
Pt dropped off by surgical nurses. Monitors applied. No report given. Will continue to assess and intervene as appropriate.
--- NOTE | 2021-06-18 18:59 | NUR ---
Pt hypothermic. Abhilash hugger and heated blankets applied. Will continue to assess and intervene as appropriate.
[2021-06-18] MEDS ORDERED: propofol 1000mg/100ml bottle 100 ML IV SCH (20:40)
[2021-06-18] MEDS: gabapentin 300mg capsule PO SCH (21:13)
[2021-06-18 21:26] LABS: BASOPHILS % (AUTO) 0.1 % (0-1); EOSINOPHILS % (AUTO) 0.2 % (0-6); HEMATOCRIT 43.3 % (42.0-52.0); HEMOGLOBIN 14.4 g/dl (14.0-17.9); LYMPHOCYTES # (AUTO) 0.3 X10'3 (1.1-4.8); LYMPHOCYTES % (AUTO) 2.8 % (21-51); MEAN CORPUSCULAR HEMOGLOBIN 30.8 PG (27.0-31.0); MEAN CORPUSCULAR HGB CONC 33.1 g/dL (33.0-36.5); MEAN PLATELET VOLUME 8.2 FL (7.4-10.4); MONOCYTES # (AUTO) 0.2 X10'3 (0-0.9); MONOCYTES % (AUTO) 1.8 % (2-12); NEUTROPHILS # (AUTO) 9.4 X10'3 (1.8-7.7); NEUTROPHILS % (AUTO) 95.1 % (42-75); PLATELET COUNT 152 X10'3 (140-440); RED BLOOD COUNT 4.66 X10'6 (4.70-6.10); RED CELL DISTRIBUTION WIDTH 15.8 % (11.5-14.5); WHITE BLOOD COUNT 9.9 X10'3 (4.5-11.0)
[2021-06-18 21:53] LABS: ALBUMIN 3.1 G/DL (3.4-5.0); ANION GAP 6 (8-16); BLOOD UREA NITROGEN 27 MG/DL (7-18); BUN/CREATININE RATIO 29.7 (5.4-32.0); CALCIUM 8.5 MG/DL (8.5-10.1); CHLORIDE 103 MMOL/L (99-107); CREATININE 0.91 MG/DL (0.60-1.10); GLUCOSE 109 MG/DL (70-104); MAGNESIUM 1.9 MG/DL (1.5-2.4); PHOSPHORUS 4.1 MG/DL (2.3-4.5); POTASSIUM 4.1 MMOL/L (3.5-5.1); SODIUM 137 MMOL/L (135-145); TOTAL CARBON DIOXIDE 27.8 MMOL/L (24-32); TRIGLYCERIDES 83 MG/DL (20-135); eGFR 80 ML/MIN
[2021-06-19] VITALS (30 sets, daily range): BP systolic 90–147; BP diastolic 39–64
[2021-06-19] MEDS: DOPamine 400mg/D5W 250ml 250 ML IV SCH ×2 (00:25→18:50)
[2021-06-19] MEDS: ceFAZolin/D5W- 1GM premix 50 ML IV SCH ×2 (00:32→09:39)
[2021-06-19 03:07] LABS: ABG BASE EXCESS 0.6 mmol/L (-2.0-2.0); ABG HCO3 24.7 mmol/L (22.0-26.0); ABG OXYGEN SATURATION 99.3 % (94-97); ABG PCO2 (T) 38.9 mmHg (35.0-48.0); ABG PO2 (T) 172.6 mmHg (75.0-100.0); FCOHb 0.6 % (0.0-3.9); FMetHb 0.5 % (0.0-1.5); FO2Hb 98.2 % (94-97); PATIENT TEMPERATURE 37.5; PEEP 5 cm H2O; RESPIRATORY RATE 12 b/min; TIDAL VOLUME 500 mL; TOTAL HEMOGLOBIN 15.4 G/dl (14.0-18.0)
[2021-06-19 03:55] LABS: BASOPHILS % (AUTO) 0.3 % (0-1); EOSINOPHILS % (AUTO) 0 % (0-6); HEMATOCRIT 42.8 % (42.0-52.0); HEMOGLOBIN 14.1 g/dl (14.0-17.9); LYMPHOCYTES # (AUTO) 0.3 X10'3 (1.1-4.8); LYMPHOCYTES % (AUTO) 3.3 % (21-51); MEAN CORPUSCULAR HEMOGLOBIN 30.7 PG (27.0-31.0); MEAN PLATELET VOLUME 8.2 FL (7.4-10.4); MONOCYTES # (AUTO) 0.2 X10'3 (0-0.9); MONOCYTES % (AUTO) 2.5 % (2-12); NEUTROPHILS # (AUTO) 8.7 X10'3 (1.8-7.7); NEUTROPHILS % (AUTO) 93.9 % (42-75); PLATELET COUNT 155 X10'3 (140-440); RED BLOOD COUNT 4.61 X10'6 (4.70-6.10); RED CELL DISTRIBUTION WIDTH 15.6 % (11.5-14.5); WHITE BLOOD COUNT 9.2 X10'3 (4.5-11.0)
[2021-06-19 04:08] LABS: ALANINE AMINOTRANSFERASE 44 U/L (12-78); ALBUMIN 2.8 G/DL (3.4-5.0); ALBUMIN/GLOBULIN RATIO 0.9 (1.1-1.5); ALKALINE PHOSPHATASE 111 IU/L (46-116); ANION GAP 9 (8-16); ASPARTATE AMINO TRANSFERASE 31 U/L (10-37); BILIRUBIN,TOTAL 1.8 MG/DL (0.1-1.0); BLOOD UREA NITROGEN 27 MG/DL (7-18); BUN/CREATININE RATIO 27.6 (5.4-32.0); CALCIUM 8.4 MG/DL (8.5-10.1); CHLORIDE 103 MMOL/L (99-107); CREATININE 0.98 MG/DL (0.60-1.10); GLUCOSE 129 MG/DL (70-104); POTASSIUM 4.3 MMOL/L (3.5-5.1); SODIUM 139 MMOL/L (135-145); TOTAL CARBON DIOXIDE 27.5 MMOL/L (24-32); TRIGLYCERIDES 70 MG/DL (20-135); eGFR 73 ML/MIN
[2021-06-19] MEDS: gabapentin 300mg capsule PO SCH ×2 (08:00→20:30)
[2021-06-19] MEDS: spironolactone 25 MG tablet PO SCH (08:00)
[2021-06-19] MEDS: furosemide 40mg tablet PO SCH (08:00)
[2021-06-19] MEDS: carvedilol 6.25mg tablet PO SCH ×2 (08:00→20:30)
[2021-06-19] MEDS: aspirin 81mg, enteric-coated 1 TAB TABLET.DR PO SCH (08:00)
[2021-06-19] MEDS: docusate sod 100mg capsule PO SCH ×2 (08:00→20:30)
[2021-06-19] MEDS: K and/or MAG REPLACEMENT MC SCH ×2 (08:00→20:00)
[2021-06-19] MEDS: losartan 25mg tablet PO SCH (08:00)
[2021-06-19] MEDS: amiodarone 100mg tablet PO SCH (08:00)
[2021-06-19] MEDS ORDERED: albumin (Human) 5% 250ml 250 ML IV ONE (08:20)
[2021-06-20] VITALS (15 sets, daily range): BP systolic 93–141; BP diastolic 47–75
--- NOTE | 2021-06-20 00:51 | NUR ---
This is an 80 years old male, admitted 06/09/2021, day 10 of hospitalization full code, NDA, No isolation, no restrains. Presents to ER c/o SOB times 1-2 weeks. Who became increasingly SOB 06/09/2021. CT shows PE and ground glass opacities consistent with COVID PNA (pt had COVID PNA in the past). This patient was recently operated with a AICD, and Dr. Lassiter asked Dr Castro to place the left ventricular epicardial lead. The patient in 2019 had a stenting procedure at which time it was found that he had disease in his circumflex and LAD as well as severe right coronary artery disease. The right coronary artery was stented. He has a 25% ejection fraction at this point and has severe shortness of breath, unable to walk more than 10 feet without shortness of breath. He has been complaining specifically of chest pain. His ejection fraction verifies a 25% ejection fraction. He also has a nonocclusive pulmonary embolus on the left lung.On 06/18/2021, Pt is s/p Mini-Thoracotomy for left LV placement, evacuation of of pacer pocket hematoma. Placement of Triax ABX pocket over AICD. Placement of Proveena wound vac over pocket incision. Evacuation of Left pleural effusion and placement of left Pericardial and left pleural drain. Currently, Pt is AAO times 4, lethargic at times but easily to arouse, noted gross generalized weakness, follows all commands, moves all extremities. Pt denies pain and or discomfort. Pt is V-Paced at 60 BPM, BP 128/59 per right wrist A-Line. ECHO shows 20-25% EF. Presence of Left chest tube, suction to 20 cm/Hg, dressing with small red drainage, dressing reenforced. Presence of RADHA drain, draining red drainage. Presence of left chest wall wound vac with minimal drainage. Monitoring drainage frequently. CVP monitored via RIJ-TLC, CVP 3-6. Pt was extubated today at 13:14. RR 12-15, PO 100% on O2 L NC. Breath sounds, clear to diminished, equal, symmetrical, non labored. Hypoactive bowel sounds, soft non tender, sunken abdomen. Pt passed bedside nursing swallow evaluation. No Diet ordered at this time. Bladder non distended, Castro draining emanuel/ yellow urine. 30+/hr. Skin intact, gross ecchymosis on left chest wall, shoulder and arm. Notable prickly rash on back and buttocks. Pt was bathed bed changed. Family up dated. Pt remains safe. Continue to monitor.
[2021-06-20 02:30] LABS: BASOPHILS # (AUTO) 0.1 X10'3 (0-0.2); BASOPHILS % (AUTO) 0.5 % (0-1); EOSINOPHILS % (AUTO) 0.1 % (0-6); HEMATOCRIT 43.4 % (42.0-52.0); HEMOGLOBIN 14.2 g/dl (14.0-17.9); LYMPHOCYTES # (AUTO) 0.6 X10'3 (1.1-4.8); LYMPHOCYTES % (AUTO) 5.3 % (21-51); MEAN CORPUSCULAR HEMOGLOBIN 30.5 PG (27.0-31.0); MEAN CORPUSCULAR HGB CONC 32.9 g/dL (33.0-36.5); MEAN PLATELET VOLUME 8.5 FL (7.4-10.4); MONOCYTES # (AUTO) 0.8 X10'3 (0-0.9); MONOCYTES % (AUTO) 7.3 % (2-12); NEUTROPHILS # (AUTO) 9.2 X10'3 (1.8-7.7); NEUTROPHILS % (AUTO) 86.8 % (42-75); PLATELET COUNT 149 X10'3 (140-440); RED BLOOD COUNT 4.67 X10'6 (4.70-6.10); RED CELL DISTRIBUTION WIDTH 15.7 % (11.5-14.5); WHITE BLOOD COUNT 10.6 X10'3 (4.5-11.0)
[2021-06-20 02:43] LABS: ALANINE AMINOTRANSFERASE 34 U/L (12-78); ALBUMIN 2.7 G/DL (3.4-5.0); ALBUMIN/GLOBULIN RATIO 0.8 (1.1-1.5); ALKALINE PHOSPHATASE 102 IU/L (46-116); ANION GAP 4 (8-16); ASPARTATE AMINO TRANSFERASE 29 U/L (10-37); BILIRUBIN,TOTAL 1.8 MG/DL (0.1-1.0); BLOOD UREA NITROGEN 26 MG/DL (7-18); CALCIUM 8.7 MG/DL (8.5-10.1); CHLORIDE 104 MMOL/L (99-107); CREATININE 0.84 MG/DL (0.60-1.10); GLUCOSE 107 MG/DL (70-104); POTASSIUM 4.2 MMOL/L (3.5-5.1); SODIUM 136 MMOL/L (135-145); TOTAL CARBON DIOXIDE 28.2 MMOL/L (24-32); eGFR 88 ML/MIN
[2021-06-20 07:55] LABS: MAGNESIUM 2.1 MG/DL (1.5-2.4); PHOSPHORUS 2.9 MG/DL (2.3-4.5)
[2021-06-20] MEDS: K and/or MAG REPLACEMENT MC SCH (08:00)
[2021-06-20] MEDS: aspirin 81mg, enteric-coated 1 TAB TABLET.DR PO SCH (08:31)
[2021-06-20] MEDS: docusate sod 100mg capsule PO SCH ×2 (08:32→20:00)
[2021-06-20] MEDS: losartan 25mg tablet PO SCH (08:32)
[2021-06-20] MEDS: gabapentin 300mg capsule PO SCH (08:32)
[2021-06-20] MEDS: carvedilol 6.25mg tablet PO SCH ×2 (08:32→20:00)
[2021-06-20] MEDS: amiodarone 100mg tablet PO SCH (08:32)
[2021-06-20] MEDS: furosemide 40mg tablet PO SCH (08:32)
[2021-06-20] MEDS: spironolactone 25 MG tablet PO SCH (08:33)
[2021-06-20] MEDS ORDERED: magnesium 2GM in 50ml NS 50 ML IV PRN (09:15)
[2021-06-20] MEDS ORDERED: potassium CL 10mEq/100ml bag 100 ML IV PRN (09:15)
[2021-06-20] MEDS ORDERED: potassium Cl 20mEq/100mL bag 100 ML IV PRN (09:15)
[2021-06-20] MEDS ORDERED: potassium Cl 40MEQ/250ML bag 250 ML IV PRN (09:15)
[2021-06-20] MEDS ORDERED: magnesium 4gm in 100ml NS 100 ML IV PRN (09:15)
[2021-06-20] MEDS ORDERED: potassium Cl 20 mEq SR tablet PO PRN (09:15)
[2021-06-20] MEDS ORDERED: potassium Cl 40MEQ/1/2NS 520ml 520 ML IV PRN (09:15)
--- NOTE | 2021-06-20 11:09 | NUR ---
Nutrition Consult: Pt s/p L mini thoracotomy and extubated yesterday per EMR. Pt continues to consume 100% avg regular diet meeting nutrition needs post-op. RD does recommend Rob smoothie BIDBD given surgical wound w/ wound vac present post-op; PA notified. Noted last significant BM 06/10 w/ small BM's since receiving routine colace per EMR; may benefit from additional bowel care post-op per MD discretion. Will monitor for further nutrition intervention needs. Recommendations: 1. Continue regular diet 2. Rob smoothie BIDBD for surgical wound healing; pending PA verification in EMR 3. Routine bowel care; small BM's since 06/10 per EMR 4. Weekly scaled wts Addendum: 06/20/21 at [address] Amended: Links added.
[2021-06-20] MEDS ORDERED: ondansetron 4mg rapidly disintigrating tab PO PRN (13:15)
[2021-06-20] MEDS: JUVEN Smoothie Arginine/Glut./Ca2+Bmb (Juven 19.3pkt) 240ml cup PO SCH (17:30)
--- NOTE | 2021-06-20 18:11 | NUR ---
Patient in room MED 315. I have received report from ALFONZO NEWSOME and had the opportunity to ask questions and assume patient care. Addendum: 06/20/21 at 1831 by Selene Caruso RN WRONG PATIENT
[2021-06-20] MEDS: magnesium Cl slow-release 64mg tablet PO SCH (20:00)
[2021-06-20] MEDS: potassium Cl 20 mEq SR tablet PO SCH (20:00)
[2021-06-21 02:00] VITALS: BP 112/64
[2021-06-21 05:41] LABS: BASOPHILS % (AUTO) 0.2 % (0-1); EOSINOPHILS # (AUTO) 0.1 X10'3 (0-0.9); EOSINOPHILS % (AUTO) 0.9 % (0-6); HEMATOCRIT 44.3 % (42.0-52.0); HEMOGLOBIN 14.6 g/dl (14.0-17.9); LYMPHOCYTES # (AUTO) 0.7 X10'3 (1.1-4.8); LYMPHOCYTES % (AUTO) 7.8 % (21-51); MEAN CORPUSCULAR HEMOGLOBIN 30.8 PG (27.0-31.0); MEAN CORPUSCULAR VOLUME 93.2 FL (78-98); MEAN PLATELET VOLUME 8.5 FL (7.4-10.4); MONOCYTES # (AUTO) 0.7 X10'3 (0-0.9); MONOCYTES % (AUTO) 7.7 % (2-12); NEUTROPHILS # (AUTO) 7.3 X10'3 (1.8-7.7); NEUTROPHILS % (AUTO) 83.4 % (42-75); PLATELET COUNT 139 X10'3 (140-440); RED BLOOD COUNT 4.75 X10'6 (4.70-6.10); RED CELL DISTRIBUTION WIDTH 16.2 % (11.5-14.5); WHITE BLOOD COUNT 8.8 X10'3 (4.5-11.0)
[2021-06-21 05:46] LABS: ALBUMIN 2.4 G/DL (3.4-5.0); ANION GAP 4 (8-16); BLOOD UREA NITROGEN 37 MG/DL (7-18); BUN/CREATININE RATIO 34.6 (5.4-32.0); CALCIUM 8.5 MG/DL (8.5-10.1); CHLORIDE 101 MMOL/L (99-107); CREATININE 1.07 MG/DL (0.60-1.10); GLUCOSE 103 MG/DL (70-104); POTASSIUM 3.9 MMOL/L (3.5-5.1); SODIUM 134 MMOL/L (135-145); TOTAL CARBON DIOXIDE 28.9 MMOL/L (24-32); eGFR 66 ML/MIN
[2021-06-21 06:00] VITALS: BP 116/68
[2021-06-21] MEDS: JUVEN Smoothie Arginine/Glut./Ca2+Bmb (Juven 19.3pkt) 240ml cup PO SCH ×2 (08:16→17:57)
--- NOTE | 2021-06-21 08:22 | NUR ---
PT REFUSED 0700 BLOOD SUGAR CHECK
[2021-06-21] MEDS: potassium Cl 20 mEq SR tablet PO SCH ×2 (08:27→20:30)
[2021-06-21] MEDS: magnesium Cl slow-release 64mg tablet PO SCH ×2 (08:27→20:29)
[2021-06-21] MEDS: spironolactone 25 MG tablet PO SCH (08:27)
[2021-06-21] MEDS: losartan 25mg tablet PO SCH (08:28)
[2021-06-21] MEDS: carvedilol 6.25mg tablet PO SCH ×2 (08:28→20:30)
[2021-06-21] MEDS: docusate sod 100mg capsule PO SCH ×2 (08:28→20:30)
[2021-06-21] MEDS: aspirin 81mg, enteric-coated 1 TAB TABLET.DR PO SCH (08:28)
[2021-06-21] MEDS: furosemide 40mg tablet PO SCH (08:28)
[2021-06-21] MEDS: amiodarone 100mg tablet PO SCH (08:29)
[2021-06-21 11:00] VITALS: BP 98/45
--- NOTE | 2021-06-21 12:31 | NUR ---
Per Dr Lassiter. Added Eliquis 5mg PO BID starting tonight for Afib and blood clot in lungs. Also, added discharge planning, and [facility] [place] that the prevena wound vac can come off upon pt d/c.
[2021-06-21] MEDS: cephalexin 500mg capsule PO SCH ×2 (14:47→21:00)
[2021-06-21] MEDS: clopidogrel 75mg tablet PO SCH (14:48)
[2021-06-21 15:00] VITALS: BP 100/61
[2021-06-21 18:00] VITALS: BP 97/51
--- NOTE | 2021-06-21 18:26 | NUR ---
Problems reprioritized. Patient report given, questions answered & plan of care reviewed with MERCEDEZ Bliss.
[2021-06-21] MEDS: apixaban 5mg tablet PO SCH (20:30)
[2021-06-21 22:00] VITALS: BP 108/57
[2021-06-22] VITALS (7 sets, daily range): BP systolic 101–123; BP diastolic 49–65
--- NOTE | 2021-06-22 06:19 | NUR ---
Problems reprioritized. Patient report given, questions answered & plan of care reviewed with Deb..
[2021-06-22] MEDS: JUVEN Smoothie Arginine/Glut./Ca2+Bmb (Juven 19.3pkt) 240ml cup PO SCH ×2 (07:30→17:30)
[2021-06-22 07:49] LABS: BASOPHILS % (AUTO) 0.1 % (0-1); EOSINOPHILS # (AUTO) 0.2 X10'3 (0-0.9); HEMATOCRIT 44.1 % (42.0-52.0); HEMOGLOBIN 14.4 g/dl (14.0-17.9); LYMPHOCYTES # (AUTO) 0.7 X10'3 (1.1-4.8); LYMPHOCYTES % (AUTO) 6.8 % (21-51); MEAN CORPUSCULAR HEMOGLOBIN 30.5 PG (27.0-31.0); MEAN CORPUSCULAR HGB CONC 32.7 g/dL (33.0-36.5); MEAN CORPUSCULAR VOLUME 93.1 FL (78-98); MEAN PLATELET VOLUME 8.3 FL (7.4-10.4); MONOCYTES # (AUTO) 0.7 X10'3 (0-0.9); MONOCYTES % (AUTO) 6.6 % (2-12); NEUTROPHILS # (AUTO) 8.9 X10'3 (1.8-7.7); NEUTROPHILS % (AUTO) 84.5 % (42-75); PLATELET COUNT 133 X10'3 (140-440); RED BLOOD COUNT 4.74 X10'6 (4.70-6.10); RED CELL DISTRIBUTION WIDTH 16.1 % (11.5-14.5); WHITE BLOOD COUNT 10.5 X10'3 (4.5-11.0)
[2021-06-22] MEDS: magnesium Cl slow-release 64mg tablet PO SCH ×2 (08:00→19:49)
[2021-06-22 08:19] LABS: ALBUMIN 2.4 G/DL (3.4-5.0); ANION GAP 6 (8-16); BLOOD UREA NITROGEN 36 MG/DL (7-18); BUN/CREATININE RATIO 39.6 (5.4-32.0); CALCIUM 8.4 MG/DL (8.5-10.1); CHLORIDE 102 MMOL/L (99-107); CREATININE 0.91 MG/DL (0.60-1.10); GLUCOSE 85 MG/DL (70-104); POTASSIUM 4.3 MMOL/L (3.5-5.1); SODIUM 135 MMOL/L (135-145); TOTAL CARBON DIOXIDE 27.5 MMOL/L (24-32); eGFR 80 ML/MIN
[2021-06-22] MEDS: spironolactone 25 MG tablet PO SCH (09:40)
[2021-06-22] MEDS: cephalexin 500mg capsule PO SCH ×3 (09:41→19:49)
[2021-06-22] MEDS: docusate sod 100mg capsule PO SCH ×2 (09:42→19:49)
[2021-06-22] MEDS: amiodarone 100mg tablet PO SCH (09:42)
[2021-06-22] MEDS: aspirin 81mg, enteric-coated 1 TAB TABLET.DR PO SCH (09:43)
[2021-06-22] MEDS: carvedilol 6.25mg tablet PO SCH ×2 (09:43→19:49)
[2021-06-22] MEDS: clopidogrel 75mg tablet PO SCH (09:43)
[2021-06-22] MEDS: apixaban 5mg tablet PO SCH ×2 (09:43→19:49)
[2021-06-22] MEDS: furosemide 40mg tablet PO SCH (09:44)
[2021-06-22] MEDS: losartan 25mg tablet PO SCH (12:06)
[2021-06-22] MEDS: potassium Cl 20 mEq SR tablet PO SCH ×2 (12:07→19:49)
--- NOTE | 2021-06-22 12:42 | NUR ---
Per Dr Lassiter, orders as follows: 1.5L FR/24 hrs low sodium diet ok to order Mg lab as add on pt wants inpatient rehab - possibly d/c on thursday if Gloria concurs. Notified AMIRA Benton
--- NOTE | 2021-06-22 18:00 | NUR ---
Patient in room MED 315. I have received report from MERCEDEZ Tao and had the opportunity to ask questions and assume patient care.
--- NOTE | 2021-06-22 18:51 | NUR ---
Pt has been able to make his needs known with call light within reach at all times. No s/s or C/o pain throughout shift. Pt has been repositioning himself and moving between bed, chair, and bedside commode with ease.
[2021-06-23] VITALS (7 sets, daily range): BP systolic 82–101; BP diastolic 46–58
--- NOTE | 2021-06-23 06:22 | NUR ---
Problems reprioritized. Patient report given, questions answered & plan of care reviewed with MERCEDEZ Taveras.
[2021-06-23 06:27] LABS: BASOPHILS % (AUTO) 0.4 % (0-1); EOSINOPHILS # (AUTO) 0.3 X10'3 (0-0.9); EOSINOPHILS % (AUTO) 3.2 % (0-6); HEMOGLOBIN 14.4 g/dl (14.0-17.9); LYMPHOCYTES # (AUTO) 0.9 X10'3 (1.1-4.8); LYMPHOCYTES % (AUTO) 8.9 % (21-51); MEAN CORPUSCULAR HEMOGLOBIN 31.1 PG (27.0-31.0); MEAN CORPUSCULAR HGB CONC 33.4 g/dL (33.0-36.5); MEAN PLATELET VOLUME 8.4 FL (7.4-10.4); MONOCYTES # (AUTO) 0.8 X10'3 (0-0.9); MONOCYTES % (AUTO) 8.2 % (2-12); NEUTROPHILS # (AUTO) 7.7 X10'3 (1.8-7.7); NEUTROPHILS % (AUTO) 79.3 % (42-75); PLATELET COUNT 135 X10'3 (140-440); RED BLOOD COUNT 4.63 X10'6 (4.70-6.10); RED CELL DISTRIBUTION WIDTH 16.2 % (11.5-14.5); WHITE BLOOD COUNT 9.7 X10'3 (4.5-11.0)
[2021-06-23] MEDS: JUVEN Smoothie Arginine/Glut./Ca2+Bmb (Juven 19.3pkt) 240ml cup PO SCH ×2 (07:30→17:30)
[2021-06-23 07:48] LABS: ALBUMIN 2.4 G/DL (3.4-5.0); BLOOD UREA NITROGEN 28 MG/DL (7-18); BUN/CREATININE RATIO 32.6 (5.4-32.0); CALCIUM 8.4 MG/DL (8.5-10.1); CREATININE 0.86 MG/DL (0.60-1.10); GLUCOSE 97 MG/DL (70-104); TOTAL CARBON DIOXIDE 26.9 MMOL/L (24-32); eGFR 85 ML/MIN
[2021-06-23] MEDS: clopidogrel 75mg tablet PO SCH (08:13)
[2021-06-23] MEDS: spironolactone 25 MG tablet PO SCH (08:13)
[2021-06-23] MEDS: apixaban 5mg tablet PO SCH ×2 (08:13→19:18)
[2021-06-23] MEDS: furosemide 40mg tablet PO SCH (08:14)
[2021-06-23] MEDS: magnesium Cl slow-release 64mg tablet PO SCH ×2 (08:14→19:18)
[2021-06-23] MEDS: amiodarone 100mg tablet PO SCH (08:14)
[2021-06-23] MEDS: cephalexin 500mg capsule PO SCH ×3 (08:14→20:47)
[2021-06-23] MEDS: carvedilol 6.25mg tablet PO SCH ×2 (08:14→20:48)
[2021-06-23] MEDS: aspirin 81mg, enteric-coated 1 TAB TABLET.DR PO SCH (08:14)
[2021-06-23] MEDS: potassium Cl 20 mEq SR tablet PO SCH ×2 (08:14→19:18)
[2021-06-23] MEDS: docusate sod 100mg capsule PO SCH ×2 (08:14→19:18)
[2021-06-23] MEDS: losartan 25mg tablet PO SCH ×2 (08:14→13:00)
[2021-06-23] MEDS ORDERED: losartan 25mg tablet PO SCH (12:11)
--- NOTE | 2021-06-23 12:47 | NUR ---
Reassessment; Pt continues w/ mostly 100% intake of meals meeting needs, now on Sodium restricted diet per Muffle Worker. Pt also consuming ~50% of Rob Smoothies. LBM 3/5 receiving routine bowel care. No change to recommendations at this time, will continue to monitor. Recommendations: 1. Continue Sodium restricted diet per MD 2. Rob smoothie BIDBD for surgical wound healing 3. Routine bowel care 4. Weekly scaled wts Addendum: 06/23/21 at [address] Amended: Links added.
[2021-06-23 13:19] LABS: POTASSIUM 4.4 MMOL/L (3.3-5.1)
[2021-06-24 02:00] VITALS: BP 110/59
[2021-06-24 06:00] VITALS: BP 105/57
--- NOTE | 2021-06-24 06:10 | NUR ---
Problems reprioritized. Patient report given, questions answered & plan of care reviewed with Parmjit NEWSOME.
[2021-06-24 06:35] LABS: ALBUMIN 2.5 G/DL (3.4-5.0); ANION GAP 7 (8-16); BLOOD UREA NITROGEN 33 MG/DL (7-18); BUN/CREATININE RATIO 33.3 (5.4-32.0); CALCIUM 8.9 MG/DL (8.5-10.1); CHLORIDE 102 MMOL/L (99-107); CREATININE 0.99 MG/DL (0.60-1.10); GLUCOSE 91 MG/DL (70-104); POTASSIUM 4.5 MMOL/L (3.5-5.1); SODIUM 133 MMOL/L (135-145); TOTAL CARBON DIOXIDE 23.7 MMOL/L (24-32); eGFR 72 ML/MIN
[2021-06-24] MEDS: JUVEN Smoothie Arginine/Glut./Ca2+Bmb (Juven 19.3pkt) 240ml cup PO SCH ×2 (07:30→17:25)
[2021-06-24] MEDS: carvedilol 6.25mg tablet PO SCH ×2 (08:43→21:00)
[2021-06-24] MEDS: cephalexin 500mg capsule PO SCH ×3 (08:43→21:00)
[2021-06-24] MEDS: magnesium Cl slow-release 64mg tablet PO SCH ×2 (08:44→20:20)
[2021-06-24] MEDS: apixaban 5mg tablet PO SCH ×2 (08:44→20:20)
[2021-06-24] MEDS: furosemide 40mg tablet PO SCH (08:44)
[2021-06-24] MEDS: docusate sod 100mg capsule PO SCH ×2 (08:44→20:19)
[2021-06-24] MEDS: potassium Cl 20 mEq SR tablet PO SCH ×2 (08:44→20:20)
[2021-06-24] MEDS: spironolactone 25 MG tablet PO SCH (08:44)
[2021-06-24] MEDS: clopidogrel 75mg tablet PO SCH (08:44)
[2021-06-24] MEDS: amiodarone 100mg tablet PO SCH (08:44)
[2021-06-24] MEDS: aspirin 81mg, enteric-coated 1 TAB TABLET.DR PO SCH (08:45)
[2021-06-24] MEDS: losartan 25mg tablet PO SCH (16:32)
[2021-06-24 18:00] VITALS: BP 103/63
[2021-06-24 22:00] VITALS: BP 105/67
[2021-06-25 02:00] VITALS: BP 100/55
[2021-06-25 06:00] VITALS: BP 129/82
[2021-06-25 06:13] LABS: ALBUMIN 2.4 G/DL (3.4-5.0); ANION GAP 0 (8-16); BLOOD UREA NITROGEN 28 MG/DL (7-18); BUN/CREATININE RATIO 31.8 (5.4-32.0); CALCIUM 8.5 MG/DL (8.5-10.1); CHLORIDE 102 MMOL/L (99-107); CREATININE 0.88 MG/DL (0.60-1.10); GLUCOSE 94 MG/DL (70-104); POTASSIUM 4.2 MMOL/L (3.5-5.1); SODIUM 133 MMOL/L (135-145); TOTAL CARBON DIOXIDE 30.9 MMOL/L (24-32); eGFR 83 ML/MIN
--- NOTE | 2021-06-25 06:21 | NUR ---
Problems reprioritized. Patient report given, questions answered & plan of care reviewed with
[2021-06-25] MEDS: JUVEN Smoothie Arginine/Glut./Ca2+Bmb (Juven 19.3pkt) 240ml cup PO SCH (07:30)
[2021-06-25] MEDS: aspirin 81mg, enteric-coated 1 TAB TABLET.DR PO SCH (08:25)
[2021-06-25] MEDS: amiodarone 100mg tablet PO SCH (08:25)
[2021-06-25] MEDS: magnesium Cl slow-release 64mg tablet PO SCH (08:25)
[2021-06-25] MEDS: cephalexin 500mg capsule PO SCH (08:26)
[2021-06-25] MEDS: clopidogrel 75mg tablet PO SCH (08:26)
[2021-06-25] MEDS: spironolactone 25 MG tablet PO SCH (08:26)
[2021-06-25] MEDS: potassium Cl 20 mEq SR tablet PO SCH (08:26)
[2021-06-25] MEDS: furosemide 40mg tablet PO SCH (08:26)
[2021-06-25] MEDS: docusate sod 100mg capsule PO SCH (08:26)
[2021-06-25] MEDS: apixaban 5mg tablet PO SCH (08:26)
[2021-06-25] MEDS: carvedilol 6.25mg tablet PO SCH (08:26)
[2021-06-25 10:00] VITALS: BP 135/68
[2021-06-25] MEDS ORDERED: APIX5TAB3 PO (11:41)
--- NOTE | 2021-06-25 14:10 | NUR ---
Report called to [facility]. Spoke to LATRICE Zavaleta. All questions answered. Pt left unit via transport.
[2021-09-18] MEDS ORDERED: DOPamine/D5W 400mg/250ml bag IV ONE (14:45)
[2021-09-18] MEDS ORDERED: NORepinephrine 8 MG in NS 250 ML BAG (32 mcg/ml) IV ONE (14:45)
[2021-09-18] MEDS ORDERED: sevoflurane 250ml liquid IH ONE (14:45)
== END 2021-06-25 14:10 | DRG 226 ==
LOC: ER 23:52 → ED HOLD 06-09 05:44 → SUR 3N 06-09 07:38 → PCU 3S 06-09 12:55 → ICU 2S 06-18 16:43 → MED 3N 06-20 12:30
PROVIDERS: ADMIT Internal Medicine; ATTEND Family Medicine
PROC: B32T1ZZ Computerized Tomography (CT Scan) of Left Pulmonary Artery using Low Osmolar Contrast (ICD-10-PCS; 2021-06-09)
PROC: B3201ZZ Computerized Tomography (CT Scan) of Thoracic Aorta using Low Osmolar Contrast (ICD-10-PCS; 2021-06-09)
PROC: B32S1ZZ Computerized Tomography (CT Scan) of Right Pulmonary Artery using Low Osmolar Contrast (ICD-10-PCS; 2021-06-09)
PROC: 0JH609Z Insertion of Cardiac Resynchronization Defibrillator Pulse Generator into Chest Subcutaneous Tissue and Fascia, Open Approach (ICD-10-PCS; principal; 2021-06-13)
PROC: 02HK3KZ Insertion of Defibrillator Lead into Right Ventricle, Percutaneous Approach (ICD-10-PCS; 2021-06-13)
PROC: 4A02XM4 Measurement of Cardiac Total Activity, External Approach (ICD-10-PCS; 2021-06-17)
PROC: 3E033HZ Introduction of Radioactive Substance into Peripheral Vein, Percutaneous Approach (ICD-10-PCS; 2021-06-17)
PROC: 02HL0KZ Insertion of Defibrillator Lead into Left Ventricle, Open Approach (ICD-10-PCS; 2021-06-18)
PROC: 0HC5XZZ Extirpation of Matter from Chest Skin, External Approach (ICD-10-PCS; 2021-06-18)
PROC: 02HV33Z Insertion of Infusion Device into Superior Vena Cava, Percutaneous Approach (ICD-10-PCS; 2021-06-18)
PROC: B548ZZA Ultrasonography of Superior Vena Cava, Guidance (ICD-10-PCS; 2021-06-18)
PROC: 04HY32Z Insertion of Monitoring Device into Lower Artery, Percutaneous Approach (ICD-10-PCS; 2021-06-18)
DX: I25.5 Ischemic cardiomyopathy (principal); I26.99 Other pulmonary embolism without acute cor pulmonale; I21.A1 Myocardial infarction type 2; N17.0 Acute kidney failure with tubular necrosis; I50.23 Acute on chronic systolic (congestive) heart failure; I48.19 Other persistent atrial fibrillation; I13.0 Hypertensive heart and chronic kidney disease with heart failure and stage 1 through stage 4 chronic kidney disease, or unspecified chronic kidney disease; I42.0 Dilated cardiomyopathy; Z20.822 Contact with and (suspected) exposure to COVID-19; I44.7 Left bundle-branch block, unspecified; I25.10 Atherosclerotic heart disease of native coronary artery without angina pectoris; N18.9 Chronic kidney disease, unspecified; E78.5 Hyperlipidemia, unspecified; J44.9 Chronic obstructive pulmonary disease, unspecified; Z60.2 Problems related to living alone; I95.9 Hypotension, unspecified; R00.1 Bradycardia, unspecified; R26.2 Difficulty in walking, not elsewhere classified; I25.2 Old myocardial infarction; Z79.01 Long term (current) use of anticoagulants; Z79.02 Long term (current) use of antithrombotics/antiplatelets; Z79.82 Long term (current) use of aspirin; Z79.899 Other long term (current) drug therapy; Z82.3 Family history of stroke; Z82.49 Family history of ischemic heart disease and other diseases of the circulatory system; Z86.16 Personal history of COVID-19; Z86.711 Personal history of pulmonary embolism; Z87.891 Personal history of nicotine dependence; Z91.19 Patient's noncompliance with other medical treatment and regimen; Z95.5 Presence of coronary angioplasty implant and graft
CPT/HCPCS: 33249; 36415; 36600; 71045; 71275; 78452; 80048; 80053; 80076; 81001; 82803; 82948; 83690; 83735; 83880; 84100; 84478; 84484; 85018; 85025; 85730; 86885; 86900; 86901; 87070; 87075; 87102; 87635; 93005; 93017; 93306; 94002; 94003; 94640; 94760; 97110; 97116; 97162; 97530; 99152; 99153; 99291; A4215; A4565; A4618; A4620; A6258; A6449; A7000; A9500; C1758; C1769; C1777; C1882; C1887; C1894; C9803; G0378; J0280; J0360; J0690; J0696; J1265; J1644; J1650; J1940; J2250; J2270; J2405; J2704; J2785; J2930; J3010; J3370; J3490; J7060; J7120; J7512; P9045; Q9967; S0020

== ENCOUNTER 2021-11-25 08:39 | Emergency (ER) | payer OTHER, MEDICARE ==
[~2021-11-25] VITALS: Ht 170.2 cm; Wt 65.0 kg
[~2021-11-25 08:39] MED LIST changes: +APIX5TAB3 PO; +ASPI-1265 PO; +CEPH250T PO; -FURO40TA4 PO
[2021-11-25] MEDS ORDERED: LIDO700A32 TOP (09:32)
[2021-11-25] MEDS ORDERED: LIDOcaine 5% patch TP STA (09:44)
[2021-11-25 09:45] VITALS: BP 126/71
== END 2021-11-25 10:22 | disposition home or self-care (01) ==
LOC: ER 08:39
DX: S20.211A Contusion of right front wall of thorax, initial encounter (principal); R60.0 Localized edema; I48.91 Unspecified atrial fibrillation; I25.10 Atherosclerotic heart disease of native coronary artery without angina pectoris; I11.0 Hypertensive heart disease with heart failure; I50.9 Heart failure, unspecified; Z79.82 Long term (current) use of aspirin; Z79.899 Other long term (current) drug therapy; Z95.5 Presence of coronary angioplasty implant and graft; Z79.2 Long term (current) use of antibiotics; W18.30XA Fall on same level, unspecified, initial encounter; Z91.81 History of falling; Y93.89 Activity, other specified; Y92.89 Other specified places as the place of occurrence of the external cause; Y99.8 Other external cause status
CPT/HCPCS: 71101; 99284

== ENCOUNTER 2021-12-04 12:30 | Inpatient (IN) | payer OTHER, MEDICARE ==
[~2021-12-04] VITALS: Ht 170.2 cm; Wt 68.2 kg
[~2021-12-04 12:30] MED LIST changes: +LIDO700A32 TOP
[2021-12-04 13:10] LABS: EOSINOPHILS # (AUTO) 0.1 X10'3 (0-0.9); HEMATOCRIT 48.3 % (42.0-52.0); HEMOGLOBIN 15.8 g/dl (14.0-17.9); MEAN CORPUSCULAR HGB CONC 32.7 g/dL (33.0-36.5); MEAN PLATELET VOLUME 7.8 FL (7.4-10.4); WHITE BLOOD COUNT 4.8 X10'3 (4.5-11.0)
[2021-12-04 13:11] LABS: BASOPHILS % (AUTO) 0.9 % (0-1); EOSINOPHILS % (AUTO) 1.6 % (0-6); LYMPHOCYTES # (AUTO) 0.9 X10'3 (1.1-4.8); LYMPHOCYTES % (AUTO) 17.8 % (21-51); MEAN CORPUSCULAR HEMOGLOBIN 28.6 PG (27.0-31.0); MEAN CORPUSCULAR VOLUME 87.7 FL (78-98); MONOCYTES # (AUTO) 0.5 X10'3 (0-0.9); MONOCYTES % (AUTO) 10.1 % (2-12); NEUTROPHILS # (AUTO) 3.3 X10'3 (1.8-7.7); NEUTROPHILS % (AUTO) 69.6 % (42-75); PLATELET COUNT 190 X10'3 (140-440); RED BLOOD COUNT 5.51 X10'6 (4.70-6.10)
[2021-12-04 13:19] LABS: ALANINE AMINOTRANSFERASE 27 U/L (12-78); ALBUMIN 3.3 G/DL (3.4-5.0); ALBUMIN/GLOBULIN RATIO 0.8 (1.1-1.5); ALKALINE PHOSPHATASE 144 IU/L (46-116); ANION GAP 7 (8-16); ASPARTATE AMINO TRANSFERASE 33 U/L (10-37); BILIRUBIN,TOTAL 1.9 MG/DL (0.1-1.0); BLOOD UREA NITROGEN 21 MG/DL (7-18); BUN/CREATININE RATIO 16.7 (5.4-32.0); CHLORIDE 106 MMOL/L (99-107); CREATININE 1.26 MG/DL (0.60-1.10); GLUCOSE 78 MG/DL (70-104); POTASSIUM 3.5 MMOL/L (3.5-5.1); SODIUM 140 MMOL/L (135-145); TOTAL CARBON DIOXIDE 26.8 MMOL/L (24-32); TOTAL PROTEIN 7.5 G/DL (6.4-8.2); eGFR 55 ML/MIN
[2021-12-04] MEDS ORDERED: furosemide 10 MG/1 ML 10ml inj IV ONE (15:05)
[2021-12-04] MEDS ORDERED: DOBUTamine-DoBUTrex 500mg/D5W 250 ML IV SCH ×2 (15:20→17:00)
--- NOTE | 2021-12-04 15:45 | NUR ---
Barby vogel in ED - 12/04/21 at 1814 by IVETH Spoke with Shereen Zamora NP, received VO to run Dobutamine in peripheral IV and denies need for central line.
--- NOTE | 2021-12-04 15:45 | NUR ---
Spoke with Shereen Zamora NP, received VO to run Dobutamine in peripheral IV and denies need for central line.
--- NOTE | 2021-12-04 15:45 | NUR ---
Spoke with Shereen Zamora NP, received VO to run Dobutamine in peripheral IV and denies need for central line.
[2021-12-04] MEDS ORDERED: CefTRIAXone/D5W-Rocephin 1gm 50 ML IV ONE (15:50)
[2021-12-04] MEDS ORDERED: acetaminophen 325mg tablet PO PRN ×2 (16:45)
[2021-12-04] MEDS ORDERED: magnesium 2GM in 50ml NS 50 ML IV PRN (16:45)
[2021-12-04] MEDS ORDERED: POTASSIUM BICARB 20meq eff tab 20 MEQ TABLET.EFF PO PRN (16:45)
[2021-12-04] MEDS ORDERED: ondansetron/PF 4mg/2ml inj IV PRN (16:45)
[2021-12-04] MEDS ORDERED: HYDROcodone/acetaminophen 5mg/325mg tablet PO PRN (16:45)
[2021-12-04] MEDS ORDERED: potassium CL 10mEq/100ml bag 100 ML IV PRN (16:45)
[2021-12-04] MEDS ORDERED: morphine 2 MG/ML inj. syringe IV PRN (16:45)
[2021-12-04] MEDS ORDERED: magnesium 4gm in 100ml NS 100 ML IV PRN (16:45)
[2021-12-04] MEDS ORDERED: magnesium Cl slow-release 64mg tablet PO PRN (16:45)
[2021-12-04] MEDS ORDERED: FURO40TA4 PO (17:35)
[2021-12-04] MEDS ORDERED: ASPI-1071 PO (17:35)
--- NOTE | 2021-12-04 18:06 | NUR ---
LAB CALLED TROPONIN 114, INFORMED MERCEDEZ WOLFE DR.
[2021-12-04] MEDS: K and/or MAG REPLACEMENT MC SCH (20:00)
[2021-12-04] MEDS: apixaban 5mg tablet PO SCH (20:30)
[2021-12-04] MEDS: furosemide 40mg/4ml inj IV SCH (20:31)
[2021-12-04] MEDS ORDERED: temazepam 15mg capsule PO ONE (21:00)
--- NOTE | 2021-12-04 22:30 | NUR ---
Got report from charge, patient is still at ED will transfer to PCU when ER staff is available.
[2021-12-05] VITALS (14 sets, daily range): BP systolic 112–142; BP diastolic 50–97
--- NOTE | 2021-12-05 01:31 | NUR ---
Patient cannot remember his medical history, most information of this admission comes from last hospitalization record on May,.
--- NOTE | 2021-12-05 03:02 | NUR ---
Patient click alerm is on, condom catheter is on, multiple times got up from bed said want to urination, catheter bag has 1400 ml urine so far staff need multiple time redirection, continue to closely monitor for safety reasons, IV is running 5 mcg/minutes Dobutamine. V/S is stable now.
--- NOTE | 2021-12-05 06:01 | NUR ---
Patient refused admission register count his castellanos, refused hand over his castellanos and credit care (Per patient said $500 with 1 credit card in his wallet) to admission register, change nurse notified, will report to AM primary nurse. His family RR contact (Radames Munoz Son [phone], Hetal [facility]le[facility] Family [phone]) is in nursing shift patient report SBAR.
--- NOTE | 2021-12-05 06:10 | NUR ---
Patient in room PCU 3014. I have received report from Fidel NEWSOME and had the opportunity to ask questions and assume patient care.
--- NOTE | 2021-12-05 06:37 | NUR ---
2 RNs (Fidel and Gisele) went to patient room and count his wallet which has castellanos $3312 = $100 x 30, $5 x 2 $1 x 2; 1 correct express debit card, 1 [facility] care, 1 ID, 1 drive license, will do report to AM nurse call his RR Son Radames to keep it for him, patient also has 1 car calixto with him.
[2021-12-05 06:39] LABS: BASOPHILS % (AUTO) 0.2 % (0-1); EOSINOPHILS % (AUTO) 0.2 % (0-6); HEMATOCRIT 44.8 % (42.0-52.0); HEMOGLOBIN 14.9 g/dl (14.0-17.9); LYMPHOCYTES # (AUTO) 0.5 X10'3 (1.1-4.8); LYMPHOCYTES % (AUTO) 11.1 % (21-51); MEAN CORPUSCULAR HEMOGLOBIN 28.9 PG (27.0-31.0); MEAN CORPUSCULAR HGB CONC 33.3 g/dL (33.0-36.5); MEAN CORPUSCULAR VOLUME 86.6 FL (78-98); MEAN PLATELET VOLUME 7.9 FL (7.4-10.4); MONOCYTES # (AUTO) 0.4 X10'3 (0-0.9); MONOCYTES % (AUTO) 9.5 % (2-12); NEUTROPHILS # (AUTO) 3.5 X10'3 (1.8-7.7); PLATELET COUNT 141 X10'3 (140-440); RED BLOOD COUNT 5.18 X10'6 (4.70-6.10); RED CELL DISTRIBUTION WIDTH 16.4 % (11.5-14.5); WHITE BLOOD COUNT 4.4 X10'3 (4.5-11.0)
--- NOTE | 2021-12-05 06:52 | NUR ---
2 RNs (Fidel and Gisele) went to patient's room and counted his wallet which has castellanos $3312 = $100 x 30, $5 x 2 $1 x 2; 1 correct express debit card, 1 [facility] care, 1 ID, 1 drive license. Pt refusing to place in safe. keeping under his pillow.
--- NOTE | 2021-12-05 07:04 | NUR ---
2 RNs (Fidel and Gisele) went to patient's room and counted his wallet which has castellanos $3312 = $100 x 33, $5 x 2 $1 x 2; 1 correct express debit card, 1 [facility] care, 1 ID, 1 drive license. Pt refusing to place in safe. keeping under his pillow.
--- NOTE | 2021-12-05 07:05 | NUR ---
Problems reprioritized. Patient report given to MERCEDEZ Gale, questions answered & plan of care reviewed with.
[2021-12-05 07:24] LABS: ALANINE AMINOTRANSFERASE 21 U/L (12-78); ALBUMIN 2.8 G/DL (3.4-5.0); ALBUMIN/GLOBULIN RATIO 0.8 (1.1-1.5); ALKALINE PHOSPHATASE 121 IU/L (46-116); ANION GAP 13 (8-16); ASPARTATE AMINO TRANSFERASE 29 U/L (10-37); BILIRUBIN,TOTAL 2.4 MG/DL (0.1-1.0); BLOOD UREA NITROGEN 18 MG/DL (7-18); BUN/CREATININE RATIO 14.5 (5.4-32.0); CALCIUM 8.5 MG/DL (8.5-10.1); CHLORIDE 105 MMOL/L (99-107); CREATININE 1.24 MG/DL (0.60-1.10); GLUCOSE 90 MG/DL (70-104); POTASSIUM 3.2 MMOL/L (3.5-5.1); SODIUM 144 MMOL/L (135-145); TOTAL CARBON DIOXIDE 26.1 MMOL/L (24-32); TOTAL PROTEIN 6.5 G/DL (6.4-8.2); eGFR 56 ML/MIN
[2021-12-05] MEDS ORDERED: amiodarone 200mg tablet PO SCH (08:00)
[2021-12-05] MEDS: K and/or MAG REPLACEMENT MC SCH ×2 (08:00→20:22)
[2021-12-05] MEDS: furosemide 40mg/4ml inj IV SCH ×2 (08:00→20:01)
[2021-12-05] MEDS ORDERED: spironolactone 25 MG tablet PO SCH ×4 (08:30→10:38)
[2021-12-05] MEDS ORDERED: spironolactone 25 MG tablet PO ONE ×2 (09:00→10:45)
[2021-12-05] MEDS: apixaban 5mg tablet PO SCH ×2 (09:32→20:01)
[2021-12-05] MEDS: clopidogrel 75mg tablet PO SCH (09:32)
[2021-12-05] MEDS: potassium Cl 20 mEq SR tablet PO SCH ×2 (09:34→16:20)
[2021-12-05] MEDS ORDERED: amiodarone 100mg tablet PO SCH (09:53)
[2021-12-05] MEDS ORDERED: amiodarone 100mg tablet PO ONE (10:35)
[2021-12-05] MEDS ORDERED: LIDOcaine 1%/PF 5ML 10 MG/ML VIAL ONE (10:52)
[2021-12-05] MEDS: POTASSIUM BICARB 20meq eff tab 20 MEQ TABLET.EFF PO PRN ×3 (11:30→20:01)
[2021-12-05 11:55] LABS: BFSOURCE PLEURAL FLD
[2021-12-05 12:25] LABS: BF MESOTHELIAL CELLS FEW; BF RBC COUNT 1910 /CU MM; BF WBC COUNT 106 /CU MM (0-1000); BFAPPEAR CLEAR; BFCOLOR YELLOW; BFVOLUME 50 ML; LYMPHOCYTES,BODY FLUID 41 %; MONOCYTES,BODY FLUID 21 %; NEUTROPHILS,BODY FLUID 38 %
[2021-12-05 12:28] LABS: GLUCOSE,BODY FLUID 139 MG/DL; LDH,BODY FLUID 99 U/L
[2021-12-05 12:59] LABS: TOTAL PROTEIN,BODY FLUID < 2.0 G/DL
--- NOTE | 2021-12-05 14:29 | NUR ---
Received report from Vinnie NEWSOME.
--- NOTE | 2021-12-05 14:36 | NUR ---
Per pharmacy medication to replace shortage of dobutamine milrinone, per hospital protocol this medication can not be administered on any floor but ICU or CICU.
--- NOTE | 2021-12-05 14:43 | NUR ---
Paged Margarita regarding new med status.
--- NOTE | 2021-12-05 14:50 | NUR ---
Dobutamine drip is dry. Per pharmacy there is a shortage of this drug. ROSA ordered new med but per pharmacist it is against hospital protocol to give anywhere but ICU or CICU. Paged Margarita LEE. States she does not want to find replacement drug and that this is the drug she ordered and to transfer pt. to CICU if needed to give drug. Discussed this with credit charge authorizer and nursing central office operator supervisor.
--- NOTE | 2021-12-05 15:07 | NUR ---
Problems reprioritized. Patient report given, questions answered & plan of care reviewed with Sue Barnard, patient stable at transfer of care.
--- NOTE | 2021-12-05 15:32 | NUR ---
Paged Margarita LEE regarding wether or not she has contacted renewable energy project manager yet or not.
--- NOTE | 2021-12-05 16:02 | NUR ---
Per nursing dispatch supervisor chief revenue officer just changed policy on milrinone med drip. Charge aware and pt. to transfer back into care of wrapper sorter.
[2021-12-05] MEDS: milrinone (Primacor) 20mg/D5W 100 ML IV SCH (16:50)
[2021-12-05] MEDS ORDERED: ondansetron 4mg rapidly disintigrating tab PO PRN (17:20)
--- NOTE | 2021-12-05 18:45 | NUR ---
Patient in room PCU 3014. I have received report from MERCEDEZ Gale and had the opportunity to ask questions and assume patient care.
--- NOTE | 2021-12-05 19:20 | NUR ---
Problems reprioritized. Patient report given, questions answered & plan of care reviewed with Fidel Rn, patient stable at transfer of care..
[2021-12-06] VITALS (7 sets, daily range): BP systolic 86–121; BP diastolic 45–70
[2021-12-06] MEDS: milrinone (Primacor) 20mg/D5W 100 ML IV SCH (04:08)
--- NOTE | 2021-12-06 07:02 | NUR ---
Problems reprioritized. Patient report given to MERCEDEZ Rodrigues, questions answered & plan of care reviewed with.
[2021-12-06 07:07] LABS: BASOPHILS % (AUTO) 0.2 % (0-1); EOSINOPHILS # (AUTO) 0.2 X10'3 (0-0.9); EOSINOPHILS % (AUTO) 3.4 % (0-6); HEMATOCRIT 46.8 % (42.0-52.0); HEMOGLOBIN 15.5 g/dl (14.0-17.9); LYMPHOCYTES # (AUTO) 0.8 X10'3 (1.1-4.8); LYMPHOCYTES % (AUTO) 15.7 % (21-51); MEAN CORPUSCULAR HEMOGLOBIN 28.6 PG (27.0-31.0); MEAN CORPUSCULAR HGB CONC 33.1 g/dL (33.0-36.5); MEAN CORPUSCULAR VOLUME 86.3 FL (78-98); MEAN PLATELET VOLUME 7.8 FL (7.4-10.4); MONOCYTES # (AUTO) 0.6 X10'3 (0-0.9); MONOCYTES % (AUTO) 11.4 % (2-12); NEUTROPHILS # (AUTO) 3.4 X10'3 (1.8-7.7); NEUTROPHILS % (AUTO) 69.3 % (42-75); PLATELET COUNT 176 X10'3 (140-440); RED BLOOD COUNT 5.42 X10'6 (4.70-6.10); RED CELL DISTRIBUTION WIDTH 16.2 % (11.5-14.5); WHITE BLOOD COUNT 4.8 X10'3 (4.5-11.0)
[2021-12-06 07:30] LABS: ALANINE AMINOTRANSFERASE 21 U/L (12-78); ALBUMIN 2.8 G/DL (3.4-5.0); ALBUMIN/GLOBULIN RATIO 0.8 (1.1-1.5); ALKALINE PHOSPHATASE 121 IU/L (46-116); ANION GAP 8 (8-16); ASPARTATE AMINO TRANSFERASE 31 U/L (10-37); BILIRUBIN,TOTAL 1.9 MG/DL (0.1-1.0); BLOOD UREA NITROGEN 26 MG/DL (7-18); BUN/CREATININE RATIO 19.8 (5.4-32.0); CALCIUM 8.6 MG/DL (8.5-10.1); CHLORIDE 105 MMOL/L (99-107); CREATININE 1.31 MG/DL (0.60-1.10); GLUCOSE 91 MG/DL (70-104); POTASSIUM 3.8 MMOL/L (3.5-5.1); SODIUM 142 MMOL/L (135-145); TOTAL CARBON DIOXIDE 29.4 MMOL/L (24-32); TOTAL PROTEIN 6.4 G/DL (6.4-8.2); eGFR 52 ML/MIN
[2021-12-06] MEDS: K and/or MAG REPLACEMENT MC SCH (08:00)
[2021-12-06] MEDS: apixaban 5mg tablet PO SCH (09:26)
[2021-12-06] MEDS: potassium Cl 20 mEq SR tablet PO SCH (09:26)
[2021-12-06] MEDS: clopidogrel 75mg tablet PO SCH (09:26)
[2021-12-06] MEDS ORDERED: losartan 25mg tablet PO SCH (11:30)
[2021-12-06] MEDS ORDERED: carVEDilol 3.125mg tablet PO SCH (11:30)
[2021-12-06] MEDS ORDERED: COR3.125T PO (12:31)
[2021-12-06] MEDS ORDERED: CLOP75TA34 PO (12:31)
[2021-12-06] MEDS ORDERED: LOSA25TA41 PO (12:31)
[2021-12-06] MEDS ORDERED: FURO-150 PO (12:31)
[2021-12-06] MEDS ORDERED: POTA-207 PO (12:31)
[2021-12-06] MEDS ORDERED: APIX5TAB3 PO (12:31)
--- NOTE | 2021-12-06 14:09 | NUR ---
Nutrition Consult: MERCEDEZ MARIA pt admit DX CHF w/ pt and son requesting heart healthy eating guidelines as pt lives alone does not cook mainly eats out. Pt/son seen by ALEC for written/verbal heart healthy diet ed w/ RD contact information provided. RD encouraged pt/son to contact dietitian's office if further questions/concerns. Addendum: 12/06/21 at [address] Amended: Links added.
--- NOTE | 2021-12-06 15:00 | NUR ---
pt ambulated around unit with a cane. pt did not experience dizziness, but is very weak. Son will get pt a walker from [place] after discharge. BP after ambulation 104/64. All medications obtained from pt's son and I will educate both pt and son on all medications.
--- NOTE | 2021-12-06 16:30 | NUR ---
discharge instructions discussed with pt and son. All medications discussed and future md appointments have been made. All questions answered. Pt and son verbalize understanding. pt will leave unit via wheelchair with son.
[2021-12-06] MEDS ORDERED: potassium chloride 10mEq ER tablet PO SCH (17:30)
[2021-12-06] MEDS ORDERED: furosemide 20 MG/2 ML vial IV SCH (20:00)
== END 2021-12-06 16:57 | disposition home health service (06) | DRG 280 ==
LOC: ER 12:31 → ED HOLD 16:48 → PCU 3S 23:10
PROVIDERS: ADMIT Internal Medicine; ATTEND Internal Medicine
PROC: 0W9B3ZX Drainage of Left Pleural Cavity, Percutaneous Approach, Diagnostic (ICD-10-PCS; principal; 2021-12-05)
DX: I13.0 Hypertensive heart and chronic kidney disease with heart failure and stage 1 through stage 4 chronic kidney disease, or unspecified chronic kidney disease (principal); I21.A1 Myocardial infarction type 2; I50.23 Acute on chronic systolic (congestive) heart failure; J18.9 Pneumonia, unspecified organism; S22.080A Wedge compression fracture of T11-T12 vertebra, initial encounter for closed fracture; S22.31XA Fracture of one rib, right side, initial encounter for closed fracture; S32.010A Wedge compression fracture of first lumbar vertebra, initial encounter for closed fracture; J91.8 Pleural effusion in other conditions classified elsewhere; I42.0 Dilated cardiomyopathy; E78.5 Hyperlipidemia, unspecified; I08.3 Combined rheumatic disorders of mitral, aortic and tricuspid valves; N18.30 Chronic kidney disease, stage 3 unspecified; W06.XXXA Fall from bed, initial encounter; I25.10 Atherosclerotic heart disease of native coronary artery without angina pectoris; R29.6 Repeated falls; I48.91 Unspecified atrial fibrillation; E87.6 Hypokalemia; Z79.01 Long term (current) use of anticoagulants; Z82.3 Family history of stroke; Z82.49 Family history of ischemic heart disease and other diseases of the circulatory system; Z86.711 Personal history of pulmonary embolism; I25.2 Old myocardial infarction; Z87.891 Personal history of nicotine dependence; Z95.5 Presence of coronary angioplasty implant and graft; Z95.810 Presence of automatic (implantable) cardiac defibrillator; Y93.89 Activity, other specified; Y92.89 Other specified places as the place of occurrence of the external cause; Y99.8 Other external cause status; Z79.899 Other long term (current) drug therapy; Z79.82 Long term (current) use of aspirin
CPT/HCPCS: 32555; 36415; 70450; 71045; 71250; 80053; 82945; 83615; 83880; 83986; 84157; 84484; 85025; 87070; 87081; 89051; 93005; 96365; 96375; 97116; 97161; 97530; 99285; A4349; G0378; J0696; J1250; J1940; J2260; J3490